=== PATIENT | male | born 1960 | race African-American/Black ===

== ENCOUNTER 2016-05-14 07:35 | Day surgery (SDC) | payer BC ==
[~2016-05-14] VITALS: Ht 185.4 cm; Wt 113.4 kg
[~2016-05-14 07:35] MED LIST: ACET500T33 PO; AMLO5TAB2 PO; ASPI-482 PO; BUPR300T4 PO; CEFAZOLIN 1GM IVPB FOR OMNI 50 ML IV PRN; CLON1TAB PO; FENTANYL PF 100 MCG/2 ML VIAL. IV PRN; GABA-586 PO; GUAI600T38 PO; HYDR12.58 PO; HYDROMORPHONE 2 MG/ML VIAL. IV PRN; INSU100I11 SQ; INSU100I13 SQ; INSU100I17 SQ; IV RINGERS,LACTATED 1000ML 1,000 ML IV SCH; LEVO500T38 PO; LIDOCAINE 1% 1 ML SYRINGE. ID PRN; MORPHINE SULFATE 2 MG/ML DISP.SYRIN. IV PRN; MULT-245 PO; ONDANSETRON PF 4 MG/2 ML VIAL. IV PRN; PRED-220 PO; PROAIR HFA8.5 GM IH; PROCHLORPERAZINE 10 MG/2 ML VIAL. IV PRN; QUET100T4 PO; TRAZ150T55 PO; VALS320T2 PO; ZOLP10TA4 PO
--- NOTE | 2016-05-14 09:05 | DISCH ---
DISCHARGE INSTRUCTIONS Condition on Discharge Condition on Discharge: Stable Activity After Discharge Activity Instructions for Disc: Activity as tolerated Bathing Instructions: Shower-keep dressing dry Weight Bearing Status after Di: As tolerated Diet after Discharge Diet after Discharge: Regular Wound Incision Care Wound/Incision Care: Ice to area for comfort, Keep wound/cast CDI, Change dressing Contacting the DRMorris after DC Call your doctor for: Concerns you may have Follow-Up Follow up with: Melly in 2wks Treatment/Equipment after DC Adaptive Equipment Issued: None APRIL DELACRUZ II, MD May 14, 2016 09:05
--- NOTE | 2016-05-14 09:06 | PDOC ---
BRIEF OPERATIVE NOTE Date: May 14, 2016 Pre-Op Diagnosis L knee meniscus tear Post-Op Diagnosis same Procedure Performed L ILIANA, Surgeon Melly Anesthesiologist Tressa Anesthesia Type: General Blood Loss 5mL Complications none APRIL DELACRUZ II, MD May 14, 2016 09:06
[2016-05-14] MEDS ORDERED: PROPOFOL 20 ML IV ONE (09:28)
[2016-05-14] MEDS ORDERED: ONDANSETRON PF 4 MG/2 ML VIAL. ONE (09:29)
[2016-05-14] MEDS ORDERED: FENTANYL PF 100 MCG/2 ML VIAL. ONE (09:29)
[2016-05-14] MEDS ORDERED: LIDOCAINE 2% 100 MG/5 ML DISP.SYRIN. ONE (09:29)
[2016-05-14] MEDS ORDERED: SUCCINYLCHOLINE 200 MG/10 ML VIAL. ONE (09:29)
[2016-05-14] MEDS ORDERED: DEXAMETHASONE SOD PHOS 20 MG/5 ML VIAL. ONE (09:29)
[2016-05-14] MEDS ORDERED: BUPIVACAINE MPF 0.5% 30 ML VIAL. ONE (09:45)
[2016-05-14] MEDS ORDERED: LIDOCAINE 1% 20 ML VIAL. ONE (09:45)
[2016-05-14] MEDS ORDERED: EPINEPHRINE 30 MG/30 ML VIAL. ONE (09:45)
[2016-05-14] MEDS ORDERED: EPHEDRINE PF IN SALINE 50 MG/5 ML DISP.SYRIN. IV ONE (10:10)
[2016-05-14] MEDS ORDERED: PHENYLEPHRINE in 0.9% NACL PF 1 MG/10 ML DISP.SYRIN. IV ONE (10:19)
[2016-05-14] MEDS ORDERED: SEVOFLURANE 31 TO 60 MINUTES. IH ONE (10:41)
[2016-05-14] MEDS: FENTANYL PF 100 MCG/2 ML VIAL. IV PRN ×2 (11:12→11:33)
[2016-05-14] MEDS ORDERED: HYDROCODONE/APAP 5/325MG TABLET. PO PRN (11:30)
[2016-05-14] MEDS ORDERED: HYDROCODONE/APAP 5/325MG TABLET. ONE (11:35)
[2016-05-14 12:12] VITALS: BP 147/89
--- NOTE | 2016-05-14 20:47 | OP ---
DATE OF SURGERY: 05/14/2016 SURGEON: Wei Delacruz MD CLINICAL NURSE SPECIALIST: None. ANESTHESIA: General. PREOPERATIVE DIAGNOSIS: Left knee lateral meniscus tear. POSTOPERATIVE DIAGNOSIS: Left knee lateral meniscus tear. PROCEDURE PERFORMED: Left knee arthroscopic partial lateral meniscectomy. COMPLICATIONS: None. TOURNIQUET TIME: 22 minutes. ESTIMATED BLOOD LOSS: 10 mL. FINDINGS: 1. The patient had intact cartilage, patellofemoral articulation. 2. No loose bodies present in suprapatellar pouch, medial and lateral gutters. 3. Intact cruciate ligaments without pathology. 4. Intact medial compartment cartilage and medial meniscus. Medial meniscus was stable to probing. 5. The patient had an undersurface radial coursing undersurface oblique tear with a horizontal component at the posterior body of his lateral meniscus. The remainder of the meniscus was stable to probing. He had soft tibial plateau cartilage laterally. No other cartilage pathology at the lateral femoral condyle. REASON FOR PROCEDURE: The patient is a very pleasant 56-year-old who had persistent pain as well as painful catching at his knee that failed conservative therapy such as anti-inflammatories and corticosteroid injections. Because of this, we had a discussion of risks, benefits, alternatives of proceeding with the above surgery with him. He elected to proceed. DESCRIPTION OF PROCEDURE: The patient was greeted in the preoperative area by myself. Correct extremity was marked and verified. He was taken to the operative suite and his antibiotics were started en route. Once in the OR, he was transferred gently supine on the OR table and secured to the bed with all pressure points padded after successful induction of general anesthesia. We then placed a padded bar at the level of the hip after applying a nonsterile tourniquet to his left thigh. This maintained his knee at 90 degrees. We then proceeded to prep and drape left lower extremity in usual sterile fashion and conducted a standard preoperative timeout. After accomplishing this, I palpated and marked surface anatomy. We then exsanguinated the extremity with an Esmarch and insufflated the tourniquet to 300 mmHg. I then incised skin for my standard anterolateral arthroscopic portal and introduced a blunt arthroscopic trocar into the suprapatellar pouch followed by the camera. I then conducted my diagnostic arthroscopy and while at the medial compartment, I used a spinal needle to localize the anteromedial portal and incise skin in accordance with this. I then introduced a probe and continued on with my diagnostic arthroscopy with the above noted findings. I then introduced a shaver and took down a large plica for appropriate visualization with his knee in a [id number] position. After this, I began shaving and biting away the unstable part of his posterior lateral meniscus. The undersurface of the oblique portion was at approximately the mid portion of the meniscus. Using combination of shaver and upbiter I trimmed this back to stable edges as well. I then used a probe to make sure I had removed all of the meniscus tear. The meniscus was still stable. I then took my final pictures and removed all excess arthroscopic fluid with the knee back in extension and the shaver and camera in the suprapatellar pouch. The culinary assistant then vigorously palpated behind the popliteal fossa to ensure I had removed all loose debris. I then removed all excess arthroscopic fluid and the arthroscopic instrumentation. The portals were closed with a simple interrupted 2-0 nylon. Sterile dressing was then applied after I injected approximately 10 mL of a local anesthetic mixture into the periportal subcutaneous tissue. We then placed a sterile dressing, cast padding and Kwesi wrap. The patient was then awakened from anesthesia. He was transferred gently supine to the recovery room cart and taken to PACU in stable and extubated condition. Postop plan is for her to be weightbearing as tolerated. We will see him back in 2 weeks, sooner should a problem arise. WEI DELACRUZ MD DR: MARIANN/glenroy JOB#: [id number] / [id number] YAMILETH
== END 2016-05-14 12:39 | disposition home or self-care (01) ==
LOC: SURG 07:35
PROVIDERS: ATTEND Orthopaedic Surgery Sports Medicine
DX: S83.282A Other tear of lateral meniscus, current injury, left knee, initial encounter (principal); I10 Essential (primary) hypertension; J44.9 Chronic obstructive pulmonary disease, unspecified; E11.9 Type 2 diabetes mellitus without complications; F41.9 Anxiety disorder, unspecified; F32.9 Major depressive disorder, single episode, unspecified; F17.200 Nicotine dependence, unspecified, uncomplicated; D64.9 Anemia, unspecified; X58.XXXA Exposure to other specified factors, initial encounter; Y93.9 Activity, unspecified; Y92.9 Unspecified place or not applicable; Y99.9 Unspecified external cause status
CPT/HCPCS: 29881; 82947; C1782; J0171; J0330; J0690; J1100; J2405; J2704; J3010; J3490; J2370

== ENCOUNTER → 2016-05-26 | Day surgery (SDC) | payer BC ==
[~2016-05-26] MED LIST changes: -CEFAZOLIN 1GM IVPB FOR OMNI 50 ML IV PRN; -FENTANYL PF 100 MCG/2 ML VIAL. IV PRN; -HYDROMORPHONE 2 MG/ML VIAL. IV PRN; +INSU100V SQ; -LIDOCAINE 1% 1 ML SYRINGE. ID PRN; -MORPHINE SULFATE 2 MG/ML DISP.SYRIN. IV PRN; -ONDANSETRON PF 4 MG/2 ML VIAL. IV PRN; -PROCHLORPERAZINE 10 MG/2 ML VIAL. IV PRN; +PROPOFOL 20 ML IV ONE
--- NOTE | 2016-05-26 11:02 | PDOC1 ---
HISTORY & PHYSICAL H&P Karma Mata. [id number] 1960 05/21/2016 02:30 PM 04/06 [facility], [facility] OUR PATIENTS COME FIRST [address] [place] [address] Ph. [phone] Patient: Karma Mata Date of : 1960 Date: 05/21/2016 2:30 PM Visit Type: Consult This 56 year old male presents for Anemia. History of Present Illness: 1. Anemia Type of anemia was acquired for deficiency anemia (macrocytic). Pertinent negatives include abdominal pain, fatigue, jaundice, nausea and weight loss. Additional information: Here due to anemia. Hgb is down to 12 from 15. Has no melena or rectal bleed. MCV normal and B12 abd folate normal. Has normal iron. Had prior EGD and had significant gastritis and duodenitis. Had small colonic polyp before. INTAKE COMMENTS: Intake Comments: Nurse Note: the pt is here today due to Anemia, the past last HgB was 12.4. His last EGD/Colon were in 2011. PROBLEM LIST: Problem Description Onset Date Acute bilateral low back pain without sciatica 06/28/2015 Acute bronchospasm 05/11/2015 Acute bronchospasm due to viral infection 05/11/2015 Acute bronchitis, unspecified organism 05/11/2015 Tremors of nervous system 01/16/2016 Elevated CPK 01/16/2016 Alcoholic hepatitis without ascites 01/16/2016 Acute alcoholism 01/09/2016 Diabetes type 2, uncontrolled 05/04/2015 Benign essential hypertension 06/07/2009 Panic disorder without agoraphobia 06/07/2009 Hypothyroidism 06/07/2009 Anemia 06/07/2009 Chronic renal impairment 06/07/2009 Alcoholic liver damage 06/07/2009 Depressive disorder 06/07/2009 Hyperlipidemia 06/07/2009 Benign prostatic hyperplasia 06/07/2009 Diabetes mellitus without complication 06/07/2009 PAST MEDICAL/SURGICAL HISTORY (Detailed) Disease/disorder Onset Date Management Date Comments EGD with biopsy 04/22/2012 Alcoholism Anemia Arthritis Benign prostatic hyperplasia Bursitis CKD Colonic polyps-hyperplastic polyp 04/22/2012 colonoscopy with biopsy 04/22/2012 Depression Diabetes GERD Gout Headaches Hyperlipidemia Hypertension Hypothyroidism Meniscal knee tear knee surgery 05/2016 Panic disorder without agoraphobia Tremors DIAGNOSTICS HISTORY: Test Ordered Interpretation Result completed Scan MRI/Lt knee 12/21/2008 see report 12/21/2008 EGD 11/03/2008 duodenitis 11/03/2008 Abd x-ray 11/01/2008 see report 11/01/2008 chest x-ray 10/30/2008 see report 10/30/2008 Echocardiogram 01/22/2007 EF 55-60% 01/22/2007 EKG 06/08/2006 Normal 06/08/2006 EGD 04/08/2012 abnormal Imp; Gastritis(bx), duodenitis BX: Reactive gastropathy 04/22/2012 Colonoscopy 04/08/2012 abnormal Imp: polyp in the sigmoid colon(bx), BX: hyperplastic polyp 04/22/2012 Test Ordered Ordering Comments Modifier Scan MRI/Lt knee 12/21/2008 Diagnostic Images EGD 11/03/2008 Gastroenterology Abd x-ray 11/01/2008 Diagnostic Images chest x-ray 10/30/2008 Diagnostic Images Echocardiogram 01/22/2007 Cardiac Studies EKG 06/08/2006 Cardiac Studies EGD 04/08/2012 Colonoscopy 04/08/2012 Medications (Active): Started Medication Directions Instruction Stopped 01/24/2016 AMLODIPINE BESYLATE TABS 5MG TAKE 1 TABLET DAILY 01/11/2009 BD Insulin Pen Needle UF Short 31 X 5/16" 1 BOX 02/21/2016 bupropion HCl XL 300 mg 24 hr tablet, extended release TAKE 1 TABLET BY ORAL ROUTE EVERY DAY clonazepam 1 mg tablet take 1 Tablet by Oral route 3 times every day gabapentin 300 mg capsule take 1 capsule by oral route 2 times every day 05/04/2015 Humalog KwikPen 100 unit/mL subcutaneous insulin injection tid ac per ssi DX: 250.02 SSI <100=2unit, 101-150=2unit 151-200=4unit 201-250=6units 251-300=8 units 301-350=10 units 351-400=12 units Please send all refills ESCRIPT!!! 04/01/2016 hydrochlorothiazide 12.5 mg tablet take 1 tablet by oral route every day 04/09/2016 hydrocodone 7.5 mg-acetaminophen 325 mg tablet take 1 tablet by oral route every 6 hours as needed for pain 04/24/2016 LANTUS SOLOSTAR PEN 100U/ML INJECT 60 UNITS UNDER THE SKIN ONCE DAILY FOR DIABETES 01/23/2016 magnesium oxide 400 mg tablet take 1 tablet by oral route 3 times every day 11/11/2011 Pen Needle 31 X 1/4" USE ONCE PER INJECTION-THREE TIMES DAILY 03/27/2009 Precision Xtra Test Strips check FSBS daily 04/09/2016 prednisone 10 mg tablet take 1 tablet by oral route every day 01/09/2016 ProAir HFA 90 mcg/actuation aerosol inhaler INHALE 2 PUFF BY INHALATION ROUTE EVERY 6 HOURS NEEDED Seroquel 100 mg tablet take 1 tablet by oral route 2 times every day 04/09/2016 trazodone 150 mg tablet take 1 tablet by oral route every day after meals 04/01/2016 VALSARTAN TABS 320MG TAKE 1 TABLET DAILY FOR BLOOD PRESSURE 10/20/2014 Zyrtec 10 mg tablet take 1 tablet (10MG) by ORAL route every day at bedtime as needed Allergies: Ingredient Reaction Medication Name Comment LISINOPRIL REVIEW OF SYSTEMS System Neg/Pos Details Constitutional Negative Chills, fatigue, fever, malaise and weight loss. ENMT Negative Sore throat. Eyes Negative Double vision. Respiratory Negative Dyspnea and wheezing. Cardio Negative Chest pain and irregular heartbeat/palpitations. GI Positive See HPI. GI Negative Abdominal pain, jaundice, nausea and see HPI. Negative Dysuria and hematuria. Endocrine Negative Cold intolerance and heat intolerance. Psych Negative Anxiety. Integumentary Negative Hives and rash. MS Negative Joint pain. Bishop/Lymph Negative Easy bleeding and easy bruising. Allergic/Immuno Negative Food allergies. VITAL SIGNS Time BP mm/Hg Pulse /min Resp /min Temp F Ht ft Ht in Ht cm Wt lb Wt kg BMI kg/ m2 BSA m2 O2 Sat% 2:43 PM 112/78 105 98.1 6.0 2.00 187.96 268.20 121.653 34.43 98 Time Measured by 2:43 PM [facility] PHYSICAL EXAM: Exam Findings Details Constitutional Normal Well developed. Eyes Normal Conjunctiva - Right: Normal, Left: Normal. Sclera - Right: Normal, Left: Normal. Nasopharynx Normal Lips/teeth/gums - Normal. Neck Exam Normal Inspection - Normal. Thyroid gland - Normal. Respiratory Normal Inspection - Normal. Auscultation - Normal. Cardiovascular Normal Regular rate and rhythm. No murmurs, gallops, or rubs. Vascular Normal Pulses - Carotids: Normal, Femoral: Normal, Dorsalis pedis: Normal. Abdomen Normal Inspection - Normal. Anterior palpation - No guarding. No abdominal tenderness. No hepatic enlargement. No splenic enlargement. No hernia. No ascites. Skin Normal Inspection - Normal. Extremity Normal No edema. Psychiatric * Oriented to time, place, person and situation. Psychiatric Normal Appropriate mood and effect. The patient was checked out at 2:43 PM by Sola Eddy. Assessment/Plan # Detail Type Description 1. Assessment Iron deficiency anemia, unspecified iron deficiency anemia type ( D50.9). Patient Plan Schedule EGD at [facility]. Stool occult blood x3. Provider Plan If EGD is negative and stool occult is positive then to consider colonoscopy and/or Capsule endoscopy. Plan Orders Further diagnostic evaluations ordered today include(s) EGD to be performed today. He is to schedule a follow-up visit with Tommy Bryant MD upon completion of work-up Electronically signed by: Tommy Bryant MD 05/21/2016 02:57 PM Document generated by: Tommy Bryant 05/21/2016 02:57 PM Haylie Anaya MD, Family Practice; Sukh Castellon MD Internal Medicine; Maria Del Carmen Briones MD, Internal Medicine; Francisco Bryant MD Internal Medicine; Tommy Bryant MD, Gastroenterology; Bimal Bullock MD, Rheumatology, S. Jay Goss, Physical Medicine/Rehab Chavez Hummel APRN ------ 05/26/16 Patient seen and examined. No change in H&P TOMMY BRYANT MD May 26, 2016 11:02
[2016-05-26 11:42] VITALS: BP 132/74
== END | disposition home or self-care (01) ==
LOC: ENDOS 10:13
PROVIDERS: ATTEND Internal Medicine Gastroenterology
DX: K29.70 Gastritis, unspecified, without bleeding (principal); K29.80 Duodenitis without bleeding; D50.0 Iron deficiency anemia secondary to blood loss (chronic); I10 Essential (primary) hypertension; J44.9 Chronic obstructive pulmonary disease, unspecified; E11.9 Type 2 diabetes mellitus without complications; F41.9 Anxiety disorder, unspecified; F32.9 Major depressive disorder, single episode, unspecified; Z87.39 Personal history of other diseases of the musculoskeletal system and connective tissue
CPT/HCPCS: 43235; J2704

== ENCOUNTER → 2016-05-29 | Outpatient (CLI) | payer BC ==
[2016-05-26 11:42] VITALS: BP 132/74
[~2016-05-29] MED LIST changes: -IV RINGERS,LACTATED 1000ML 1,000 ML IV SCH; -PROPOFOL 20 ML IV ONE
--- NOTE | 2016-05-29 16:37 | RAD ---
Left lower extremity venous ultrasound, 05/29/2016 : History: Left leg swelling Duplex evaluation including grayscale, color flow and spectral Doppler analysis was performed. The femoral and popliteal veins show no filling defects to suggest DVT. The visualized calf veins are unremarkable. IMPRESSION: There is no sonographic evidence of deep vein thrombosis in the left lower extremity
== END | disposition home or self-care (01) ==
LOC: US 15:56
PROVIDERS: ATTEND Orthopaedic Surgery Sports Medicine
DX: M79.89 Other specified soft tissue disorders (principal)
CPT/HCPCS: 93971

== ENCOUNTER → 2016-06-09 | Day surgery (SDC) | payer BC ==
[~2016-06-09] MED LIST changes: +IV RINGERS,LACTATED 1000ML 1,000 ML IV SCH; +LIDOCAINE 2% PF Vial for OR 5 ML VIAL. ONE; +PROPOFOL 20 ML IV ONE; +PROPOFOL 40 ML IV ONE
--- NOTE | 2016-06-09 10:15 | PDOC1 ---
HISTORY & PHYSICAL H&P Kamra Mata. [id number] 1960 05/21/2016 02:30 PM 04/06 [facility], [facility] OUR PATIENTS COME FIRST [address] [place] [address] Ph. [phone] Patient: Karma Mata Date of : 1960 Date: 05/21/2016 2:30 PM Visit Type: Consult This 56 year old male presents for Anemia. History of Present Illness: 1. Anemia Type of anemia was acquired for deficiency anemia (macrocytic). Pertinent negatives include abdominal pain, fatigue, jaundice, nausea and weight loss. Additional information: Here due to anemia. Hgb is down to 12 from 15. Has no melena or rectal bleed. MCV normal and B12 abd folate normal. Has normal iron. Had prior EGD and had significant gastritis and duodenitis. Had small colonic polyp before. INTAKE COMMENTS: Intake Comments: Nurse Note: the pt is here today due to Anemia, the past last HgB was 12.4. His last EGD/Colon were in 2011. PROBLEM LIST: Problem Description Onset Date Acute bilateral low back pain without sciatica 06/28/2015 Acute bronchospasm 05/11/2015 Acute bronchospasm due to viral infection 05/11/2015 Acute bronchitis, unspecified organism 05/11/2015 Tremors of nervous system 01/16/2016 Elevated CPK 01/16/2016 Alcoholic hepatitis without ascites 01/16/2016 Acute alcoholism 01/09/2016 Diabetes type 2, uncontrolled 05/04/2015 Benign essential hypertension 06/07/2009 Panic disorder without agoraphobia 06/07/2009 Hypothyroidism 06/07/2009 Anemia 06/07/2009 Chronic renal impairment 06/07/2009 Alcoholic liver damage 06/07/2009 Depressive disorder 06/07/2009 Hyperlipidemia 06/07/2009 Benign prostatic hyperplasia 06/07/2009 Diabetes mellitus without complication 06/07/2009 PAST MEDICAL/SURGICAL HISTORY (Detailed) Disease/disorder Onset Date Management Date Comments EGD with biopsy 04/22/2012 Alcoholism Anemia Arthritis Benign prostatic hyperplasia Bursitis CKD Colonic polyps-hyperplastic polyp 04/22/2012 colonoscopy with biopsy 04/22/2012 Depression Diabetes GERD Gout Headaches Hyperlipidemia Hypertension Hypothyroidism Meniscal knee tear knee surgery 05/2016 Panic disorder without agoraphobia Tremors DIAGNOSTICS HISTORY: Test Ordered Interpretation Result completed Scan MRI/Lt knee 12/21/2008 see report 12/21/2008 EGD 11/03/2008 duodenitis 11/03/2008 Abd x-ray 11/01/2008 see report 11/01/2008 chest x-ray 10/30/2008 see report 10/30/2008 Echocardiogram 01/22/2007 EF 55-60% 01/22/2007 EKG 06/08/2006 Normal 06/08/2006 EGD 04/08/2012 abnormal Imp; Gastritis(bx), duodenitis BX: Reactive gastropathy 04/22/2012 Colonoscopy 04/08/2012 abnormal Imp: polyp in the sigmoid colon(bx), BX: hyperplastic polyp 04/22/2012 Test Ordered Ordering Comments Modifier Scan MRI/Lt knee 12/21/2008 Diagnostic Images EGD 11/03/2008 Gastroenterology Abd x-ray 11/01/2008 Diagnostic Images chest x-ray 10/30/2008 Diagnostic Images Echocardiogram 01/22/2007 Cardiac Studies EKG 06/08/2006 Cardiac Studies EGD 04/08/2012 Colonoscopy 04/08/2012 Medications (Active): Started Medication Directions Instruction Stopped 01/24/2016 AMLODIPINE BESYLATE TABS 5MG TAKE 1 TABLET DAILY 01/11/2009 BD Insulin Pen Needle UF Short 31 X 5/16" 1 BOX 02/21/2016 bupropion HCl XL 300 mg 24 hr tablet, extended release TAKE 1 TABLET BY ORAL ROUTE EVERY DAY clonazepam 1 mg tablet take 1 Tablet by Oral route 3 times every day gabapentin 300 mg capsule take 1 capsule by oral route 2 times every day 05/04/2015 Humalog KwikPen 100 unit/mL subcutaneous insulin injection tid ac per ssi DX: 250.02 SSI <100=2unit, 101-150=2unit 151-200=4unit 201-250=6units 251-300=8 units 301-350=10 units 351-400=12 units Please send all refills ESCRIPT!!! 04/01/2016 hydrochlorothiazide 12.5 mg tablet take 1 tablet by oral route every day 04/09/2016 hydrocodone 7.5 mg-acetaminophen 325 mg tablet take 1 tablet by oral route every 6 hours as needed for pain 04/24/2016 LANTUS SOLOSTAR PEN 100U/ML INJECT 60 UNITS UNDER THE SKIN ONCE DAILY FOR DIABETES 01/23/2016 magnesium oxide 400 mg tablet take 1 tablet by oral route 3 times every day 11/11/2011 Pen Needle 31 X 1/4" USE ONCE PER INJECTION-THREE TIMES DAILY 03/27/2009 Precision Xtra Test Strips check FSBS daily 04/09/2016 prednisone 10 mg tablet take 1 tablet by oral route every day 01/09/2016 ProAir HFA 90 mcg/actuation aerosol inhaler INHALE 2 PUFF BY INHALATION ROUTE EVERY 6 HOURS NEEDED Seroquel 100 mg tablet take 1 tablet by oral route 2 times every day 04/09/2016 trazodone 150 mg tablet take 1 tablet by oral route every day after meals 04/01/2016 VALSARTAN TABS 320MG TAKE 1 TABLET DAILY FOR BLOOD PRESSURE 10/20/2014 Zyrtec 10 mg tablet take 1 tablet (10MG) by ORAL route every day at bedtime as needed Allergies: Ingredient Reaction Medication Name Comment LISINOPRIL REVIEW OF SYSTEMS System Neg/Pos Details Constitutional Negative Chills, fatigue, fever, malaise and weight loss. ENMT Negative Sore throat. Eyes Negative Double vision. Respiratory Negative Dyspnea and wheezing. Cardio Negative Chest pain and irregular heartbeat/palpitations. GI Positive See HPI. GI Negative Abdominal pain, jaundice, nausea and see HPI. Negative Dysuria and hematuria. Endocrine Negative Cold intolerance and heat intolerance. Psych Negative Anxiety. Integumentary Negative Hives and rash. MS Negative Joint pain. Bishop/Lymph Negative Easy bleeding and easy bruising. Allergic/Immuno Negative Food allergies. VITAL SIGNS Time BP mm/Hg Pulse /min Resp /min Temp F Ht ft Ht in Ht cm Wt lb Wt kg BMI kg/ m2 BSA m2 O2 Sat% 2:43 PM 112/78 105 98.1 6.0 2.00 187.96 268.20 121.653 34.43 98 Time Measured by 2:43 PM [facility] PHYSICAL EXAM: Exam Findings Details Constitutional Normal Well developed. Eyes Normal Conjunctiva - Right: Normal, Left: Normal. Sclera - Right: Normal, Left: Normal. Nasopharynx Normal Lips/teeth/gums - Normal. Neck Exam Normal Inspection - Normal. Thyroid gland - Normal. Respiratory Normal Inspection - Normal. Auscultation - Normal. Cardiovascular Normal Regular rate and rhythm. No murmurs, gallops, or rubs. Vascular Normal Pulses - Carotids: Normal, Femoral: Normal, Dorsalis pedis: Normal. Abdomen Normal Inspection - Normal. Anterior palpation - No guarding. No abdominal tenderness. No hepatic enlargement. No splenic enlargement. No hernia. No ascites. Skin Normal Inspection - Normal. Extremity Normal No edema. Psychiatric * Oriented to time, place, person and situation. Psychiatric Normal Appropriate mood and effect. The patient was checked out at 2:43 PM by Sola Eddy. Assessment/Plan # Detail Type Description 1. Assessment Iron deficiency anemia, unspecified iron deficiency anemia type ( D50.9). Patient Plan Schedule EGD at [facility]. Stool occult blood x3. Provider Plan If EGD is negative and stool occult is positive then to consider colonoscopy and/or Capsule endoscopy. Plan Orders Further diagnostic evaluations ordered today include(s) EGD to be performed today. He is to schedule a follow-up visit with Tommy Bryant MD upon completion of work-up Electronically signed by: Tommy Bryant MD 05/21/2016 02:57 PM Document generated by: Tommy Bryant 05/21/2016 02:57 PM Haylie Anaya MD, Family Practice; Sukh Castellon MD Internal Medicine; Maria Del Carmen Briones MD, Internal Medicine; Francisco Bryant MD Internal Medicine; Tommy Bryant MD, Gastroenterology; Bimal Bullock MD, Rheumatology, S. Jay Goss, Physical Medicine/Rehab JMorris Hummel APRN ------ 06/09/16 Patient seen and examined. Patient has been scheduled for colonoscopy due to anemia and negative EGD. Insurance company needed this before approving for capsule endoscopy. No other change in H&P otherwise. TOMMY BRYANT MD 6, 2017 10:15
--- NOTE | 2016-06-09 11:33 | PDOC4 ---
GI OP Report - Dr. Roger Date/Time DATE: 06/09/16 TIME: 11:30 Attending Physician Howard Roger MD Referring Physician Indications Iron deficiency anemia secondary to chronic blood loss Pre-Op See the Anesthesia note for documentation of the administered medications Procedures Colonoscopy and polypectomy Findings - Three 4 to 10 mm, non-bleeding polyps in the proximal ascending colon. Resected and retrieved. Biopsied. Clips were placed. - One 8 mm polyp in the transverse colon. Resected and retrieved. - One 5 mm polyp in the rectum. Resected and retrieved. Plan - Discharge patient to home. - Patient has a contact number available for emergencies. The signs and symptoms of potential delayed complications were discussed with the patient. Return to normal activities tomorrow. Written discharge instructions were provided to the patient. - Resume regular diet. - Continue present medications. - Await pathology results. - Repeat colonoscopy in 3 - 5 years for surveillance based on pathology results. - Return to my office in 2 weeks. HOWARD ROGER MD Jun 09, 2016 11:33
[2016-06-09 11:37] VITALS: BP 126/82
--- NOTE | 2016-06-10 14:26 | PATHOLOGY ---
PATHOLOGY REPORT * * * * * * * * FINAL DIAGNOSIS: A. Colon biopsy, ascending colon polyp: - Tubular adenoma. B. Colon biopsy, transverse colon polyp: - Tubular adenoma. C. Colorectal biopsy, rectal polyp: - Tubular adenoma. COMMENT: There is no high-grade dysplasia or evidence of malignancy. (JPM:; d/t: 06/10/16) REPORT ELECTRONICALLY SIGNED BY: Jorge Luis Michaels M.D. DATE/TIME: 06/10/2016 14:25 * * * * * * * * GROSS PATHOLOGY: A. Received in formalin labeled "Karma Jordan, ascending colon polyp biopsy near ileocecal valve," are four segments of montero soft tissue measuring 0.8 x 0.8 x 0.1 cm in aggregate dimensions and ranging from 0.2 to 0.8 cm in maximum dimension. The specimen is submitted entirely in cassette A1. B. Received in formalin labeled "Karma Jordan, transverse colon polyp," are two segments of montero soft tissue measuring 0.8 x 0.7 x 0.2 cm in aggregate dimensions and ranging from 0.3 to 0.6 cm in maximum dimension. The specimen is submitted entirely in cassette B1. C. Received in formalin labeled "Karma Jordan, rectal polyp," are three segments of montero soft tissue measuring 0.5 x 0.3 x 0.1 cm in aggregate dimensions and ranging from 0.1 to 0.3 cm in maximum dimension. The specimen is submitted entirely in cassette C1. (CAA; 06/09/2016) INITIAL CPT CODE(S): A; 47852 B; 82839 C; 12986 Professional services performed by [facility] at [address] [address] Technical services performed by [facility] at [address] [place] [address] [address] [id number]. SPECIMEN(S) RECEIVED: A.Ascending colon polyp biopsy (near ileocecal valve) B.Transverse colon polyp C.Rectal polyp CLINICAL HISTORY: Anemia, history of polyps PATIENT: KARMA JORDAN /AGE: 10 1960 (Age: 56) PATIENT #: [id number] ALT CASE #: SPECIMEN COLLECTION DATE: 06/09/2016 SPECIMEN RECEIVED DATE: 06/09/2016 [facility] - [id number] [id number] - PHONE: [phone] * * * END OF REPORT * * *
== END | disposition home or self-care (01) ==
LOC: ENDOS 09:31
PROVIDERS: ATTEND Internal Medicine Gastroenterology
DX: K62.1 Rectal polyp (principal); D50.0 Iron deficiency anemia secondary to blood loss (chronic); D12.3 Benign neoplasm of transverse colon; D12.2 Benign neoplasm of ascending colon; J44.9 Chronic obstructive pulmonary disease, unspecified; I10 Essential (primary) hypertension; E11.9 Type 2 diabetes mellitus without complications; F41.9 Anxiety disorder, unspecified; F32.9 Major depressive disorder, single episode, unspecified; Z87.39 Personal history of other diseases of the musculoskeletal system and connective tissue
CPT/HCPCS: 45385; 88305; J2704

== ENCOUNTER 2016-10-07 14:21 | Emergency (ER) | payer BC ==
[~2016-10-07] VITALS: Ht 185.4 cm; Wt 113.4 kg
[~2016-10-07 14:21] MED LIST changes: -GUAI600T38 PO; +GUAI600T47 PO; -IV RINGERS,LACTATED 1000ML 1,000 ML IV SCH; -LEVO500T38 PO; +LEVO500T59 PO; -LIDOCAINE 2% PF Vial for OR 5 ML VIAL. ONE; -PROPOFOL 20 ML IV ONE; -PROPOFOL 40 ML IV ONE; +TRAZ150T49 PO; -TRAZ150T55 PO
--- NOTE | 2016-10-07 15:02 | RAD ---
Indication old injury, chronic pain. AP oblique and lateral views of the left knee were obtained. A sunrise view was also obtained. Bony mineralization appears normal. Acute bony finding is not seen. There are chondroid lesions involving the distal visualized femoral diaphysis and perhaps in the more proximal tibial diaphysis. The etiology is unclear. Bone infarcts could give this appearance. If additional imaging evaluation is warranted an MRI examination could be obtained. IMPRESSION: No acute finding. See above discussion.
[2016-10-07] MEDS ORDERED: IV NORMAL SALINE 1000ML BAG 1,000 ML IV SCH (15:04)
[2016-10-07 15:22] LABS: BASO # 0.1 x10^3/uL (0.0-0.2); BASO % 1 % (0-3); EOS % 1 % (0-3); HEMATOCRIT 45.4 % (39.0-53.0); HEMOGLOBIN 15.9 g/dL (13.0-17.5); LYMPH # 3.7 x10^3/uL (1.0-4.8); LYMPH % 45 % (24-48); MEAN CORPUSCULAR HEMOGLOBIN 31 pg (25-35); MEAN CORPUSCULAR HGB CONC 35 g/dL (31-37); MEAN CORPUSCULAR VOLUME 90 fL (79-100); MONO % 3 % (0-9); NEUT % 51 % (31-73); PLATELET COUNT 192 x10^3/uL (140-400); RED BLOOD COUNT 5.04 x10^6/uL (4.30-5.70); RED CELL DISTRIBUTION WIDTH 14.4 % (11.5-14.5); WHITE BLOOD COUNT 8.2 x10^3/uL (4.0-11.0)
--- NOTE | 2016-10-07 15:23 | ED.ADGEN ---
Past Medical History Past Medical History: Anxiety, Bronchitis, Diabetes-Type II, Hypertension Past Surgical History: Other Additional Past Surgical Histo: L KNEE Alcohol Use: Occasionally Drug Use: None Adult General Chief Complaint Chief Complaint: LOWER EXT PAIN HPI HPI Patient is a 56 year old, history of type 2 diabetes mellitus, hypertension, COPD, tobacco abuse, status post arthroscopy for a torn meniscus on the left knee in July 2016, who presents to the emergency department with complaint of left knee pain. Patient states that the pain began on Thursday. He states is located in the lateral aspect of his left knee, he states it is worse with flexion and weightbearing. He denies any injuries, stating he first noted the pain when he woke up in the morning. He took a 500 mg Tylenol this morning, then taken any other medications for the pain. Patient noted be 70 diaphoretic, states has been outside today, he has been drinking beer and soda throughout the day, as is the holiday. He states his sugars have been "good", but he's been taking medications as directed by his primary care provider. He denies any chest pain, any shortness breath, states he has been experiencing a "nasty cough ", for some time, it is primarily nonproductive. States that he has felt "hot" today, noted to have a temperature of 100.0 by mouth upon arrival to the ED, but denies any distinct fevers or chills. No nausea or vomiting, diarrhea, no swelling extremities, no rashes, no recent travel or surgery, no history of DVT or PE. Noted a mildly tachycardic, heart rate 106 at rest, 119 upon arrival to the emergency department. Review of Systems Review of Systems Constitutional: Denies fever or chills. [] Eyes: Denies change in visual acuity. [] HENT: Denies nasal congestion or sore throat. [] Respiratory: Cough, no shortness of breath. Cardiovascular: Denies chest pain or edema. [] GI: Denies abdominal pain, nausea, vomiting, bloody stools or diarrhea. [] : Denies dysuria. [] Musculoskeletal: Denies back pain, pain in the left knee, lateral aspect. Integument: Denies rash. [] Neurologic: Denies headache, focal weakness or sensory changes. [] Endocrine: Denies polyuria or polydipsia. [] Lymphatic: Denies swollen glands. [] Psychiatric: Denies depression or anxiety. [] Current Medications Current Medications Current Medications Medications (Trade) Dose Ordered Sig/Tatum Start Time Stop Time Status Last Admin Dose Admin Acetaminophen (Tylenol) 1,000 mg 1X ONCE 10/07/16 15:45 10/07/16 15:46 DC 10/07/16 15:57 1,000 MG Sodium Chloride 1,000 ml @ 1,000 mls/hr Q1H 10/07/16 15:04 10/07/16 16:03 DC 10/07/16 15:34 1,000 MLS/HR Allergies Allergies Allergies Coded Allergies Type Severity Reaction Last Updated Verified lisinopril Allergy Severe ANGIOEDEMA 06/09/16 Yes Physical Exam Physical Exam Constitutional: Well developed, well nourished, no acute distress, patient slightly diaphoretic. [] HENT: Normocephalic, atraumatic, bilateral external ears normal, oropharynx moist, no oral exudates, nose normal. [] Eyes: PERRLA, EOMI, conjunctiva normal, no discharge. [] Neck: Normal range of motion, no tenderness, supple, no stridor. [] Cardiovascular:Heart rate regular rhythm, no murmur, S1, S2, mild tachycardic. No rubs or gallops. [] Lungs & Thorax: Diminished breath sounds at bases bilaterally, no wheezing, rhonchi or rales. No chest or crepitus or tenderness. [] Abdomen: Bowel sounds normal, soft, no rebound, rigidity, no guarding, no tenderness, no masses, no pulsatile masses. [] Skin: Warm, dry, no erythema, no rash. [] Back: No tenderness, no CVA tenderness. [] Extremities: Patient with full range of motion, active and passive the knee, complains of pain on the lateral laxity to the knee, no patellar fossa tenderness, no evidence of injury, of large effusion, lesions or other concerning findings, joint is not septic in appearance, and in mobility, no cyanosis, no clubbing, ROM intact, no edema. No other areas of discomfort identified, no bony point tenderness or crepitus. [] Neurologic: Alert and oriented X 3, normal motor function, normal sensory function, no focal deficits noted. [] Psychologic: Affect normal, judgement normal, mood normal. [] Current Patient Data Vital Signs Vital Signs Date Time Temp Pulse Resp B/P (MAP) Pulse Ox O2 Delivery O2 Flow Rate FiO2 10/07/16 14:40 100.0 119 20 150/86 (107) 91 Room Air 100.0 Lab Values Laboratory Tests Test 10/07/16 15:00 10/07/16 15:35 White Blood Count 8.2 x10^3/uL (4.0-11.0) Red Blood Count 5.04 x10^6/uL (4.30-5.70) Hemoglobin 15.9 g/dL (13.0-17.5) Hematocrit 45.4 % (39.0-53.0) Mean Corpuscular Volume 90 fL (79-100) Mean Corpuscular Hemoglobin 31 pg (25-35) Mean Corpuscular Hemoglobin Concent 35 g/dL (31-37) Red Cell Distribution Width 14.4 % (11.5-14.5) Platelet Count 192 x10^3/uL (140-400) Neutrophils (%) (Auto) 51 % (31-73) Lymphocytes (%) (Auto) 45 % (24-48) Monocytes (%) (Auto) 3 % (0-9) Eosinophils (%) (Auto) 1 % (0-3) Basophils (%) (Auto) 1 % (0-3) Neutrophils # (Auto) 4.1 x10^3uL (1.8-7.7) Lymphocytes # (Auto) 3.7 x10^3/uL (1.0-4.8) Monocytes # (Auto) 0.3 x10^3/uL (0.0-1.1) Eosinophils # (Auto) 0.0 x10^3/uL (0.0-0.7) Basophils # (Auto) 0.1 x10^3/uL (0.0-0.2) Sodium Level 144 mmol/L (136-145) Potassium Level 3.9 mmol/L (3.5-5.1) Chloride Level 101 mmol/L (98-107) Carbon Dioxide Level 22 mmol/L (21-32) Anion Gap 21 (6-14) H Blood Urea Nitrogen 15 mg/dL (8-26) Creatinine 1.4 mg/dL (0.7-1.3) H Estimated GFR (Cockcroft-Gault) 63.7 Glucose Level 120 mg/dL (70-99) H Calcium Level 8.4 mg/dL (8.5-10.1) L Ethyl Alcohol Level 276 mg/dL (0-10) H Urine Collection Type Unknown Urine Color Yellow Urine Clarity Clear Urine pH 5.5 Urine Specific [place] 1.010 Urine Protein 30 mg/dL (NEG-TRACE) Urine Glucose (UA) Negative mg/dL (NEG) Urine Ketones (Stick) Negative mg/dL (NEG) Urine Blood Moderate (NEG) Urine Nitrite Negative (NEG) Urine Bilirubin Negative (NEG) Urine Urobilinogen Dipstick 0.2 mg/dL (0.2 mg/dL) Urine Leukocyte Esterase Negative (NEG) Urine RBC 0 /HPF (0-2) Urine WBC 0 /HPF (0-4) Urine Bacteria 0 /HPF (0-FEW) Urine Hyaline Casts Few /HPF Urine Mucus Mod /LPF Urine Opiates Screen Neg (NEG) Urine Methadone Screen Neg (NEG) Urine Barbiturates Neg (NEG) Urine Phencyclidine Screen Neg (NEG) Urine Amphetamine/Methamphetamine Neg (NEG) Urine Benzodiazepines Screen Neg (NEG) Urine Cocaine Screen Neg (NEG) Urine Cannabinoids Screen Neg (NEG) Urine Ethyl Alcohol Pos (NEG) Laboratory Tests 10/07/16 15:00 Laboratory Tests 10/07/16 15:00 EKG EKG EC: Sinus rhythm, heart rate 97 bpm, rates appear axis deviation, with left anterior fascicular block, QTC of 456, DC 158, QRS of 86, contour normality is in the anteroseptal leads, abnormal ECG, does not meet STEMI criteria. As interpreted by me. [] Radiology/Procedures Radiology/Procedures Chest x-ray: PA and lateral: Normal cardiopulmonary silhouette, no infiltrates, no pneumothorax, no effusions, no soft tissue or bony abnormalities identified. As interpreted by me. Course & Med Decision Making Course & Med Decision Making Pertinent Labs and Imaging studies reviewed. (See chart for details) Patient states that the knee pain is experiencing is consistent with a knee pain that he felt before his arthroscopically was performed. No evidence of septic joint on examination. Patient does not have hardware in the leg. However with patient's oxygen saturation at 91%, with temperature of 100, and heart rate in the 100s, discussed the patient could possibly be dehydrated, as he has been out in the heat and drinking alcohol and soda, will proceed with IV fluids , laboratory studies, x-ray of the chest and knee. X-ray of the chest unremarkable, oxygen saturation is 94-95% at rest, respiratory rate is unlabored ROM a heart rate is now 80s to 90s at rest, blood pressure remains 150s over 80s, patient received acetaminophen in the ED. He states he is still experiencing pain in the left knee, discussed x-ray findings with patient, noted to have chondral lesions, no evidence of acute fracture or other abnormality, discussed with patient that he should follow-up with Dr. Pickard or additional evaluation, including possible MRI. Patient voices understanding. Laboratory studies reveal a creatinine of 1.4, patient in case this is about his baseline as far as he is aware, as an alcohol level of 276, patient states that he has been "sipping" on liquor during the day, not indicated exact amounts or types of alcohol, as it is a holiday, but does not drink daily. He is alert, oriented, cooperative and appropriate in the emergency department, with at bedside. I discussed with the patient that due to his creatinine anti-inflammatories would be avoided, and that I cannot give him any stronger medications than acetaminophen as his alcohol level is prohibited. Discussed use of muscle relaxers to be used at home as needed, starting tomorrow once his alcohol level is lower. I did discuss this at length with patient and at bedside, they voiced understanding and agreement with this plan. Patient had a laboratory trial in the emergency department, heart rate arrest was in the 80s, did increase to low 100s with ambulation, oxygen saturation remained in the 93- 95% range, patient evidence orthostasis, or any concerns during his ambulation. He states that he is ready to leave the ED at this time. He states he will follow up with his primary care provider and orthopedist as discussed. Also understands concerning symptoms that prompt return. Patient discharged home in stable condition with his with plan to follow-up as stated, with prescription and precautions as discussed. Dragon Disclaimer Dragon Disclaimer This electronic medical record was generated, in whole or in part, using a voice recognition dictation system. Departure Impression: Primary Impression: Knee pain, left Additional Impression: Alcohol use Disposition: HOME, SELF-CARE Condition: IMPROVED Scripts Cyclobenzaprine Hcl (CYCLOBENZAPRINE HCL) 10 Mg Tablet 10 MG PO TID Y for PAIN, #10 TAB Prov: SONIA OSORIO DO 10/07/16 Problem Qualifiers SONIA OSORIO DO Oct 07, 2016 15:23
[2016-10-07 15:32] LABS: CALCIUM 8.4 mg/dL (8.5-10.1); CREATININE 1.4 mg/dL (0.7-1.3); GFR 63.7; POTASSIUM 3.9 mmol/L (3.5-5.1)
[2016-10-07 15:44] LABS: BILIRUBIN,URINE NEGATIVE (NEG); GLUCOSE,URINE NEGATIVE (NEG); NITRITE,URINE NEGATIVE (NEG); PH,URINE 5.5; PROTEIN,URINE 30 mg/dL (NEG-TRACE); UROBILINOGEN,URINE 0.2 mg/dL (0.2 mg/dL)
[2016-10-07] MEDS ORDERED: ACETAMINOPHEN 500 MG TABLET PO ONE (15:45)
[2016-10-07 15:49] LABS: BARBITURATES NEG (NEG); BENZODIAZEPINES NEG (NEG); CANNABINOIDS NEG (NEG); COCAINE NEG (NEG); METHADONE NEG (NEG); OPIATES NEG (NEG); PHENCYCLIDINE NEG (NEG)
[2016-10-07 15:51] LABS: BACTERIA,URINE 0 /HPF (0-FEW); RBC,URINE 0 /HPF (0-2); WBC,URINE 0 /HPF (0-4)
[2016-10-07 16:21] VITALS: BP 165/95
[2016-10-07] MEDS ORDERED: CYCL10TA2 PO (16:34)
--- NOTE | 2016-10-08 06:13 | EKG ---
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
--- NOTE | 2016-10-08 08:06 | RAD ---
Chest, 2 views, 10/07/2016: History: Cough, fever The heart size and pulmonary vascularity are normal. No pulmonary infiltrates are seen. There is no evidence of pleural fluid. IMPRESSION: No acute cardiopulmonary abnormality is detected.
== END 2016-10-07 16:34 | disposition home or self-care (01) ==
LOC: ER 14:21
DX: M25.562 Pain in left knee (principal); R61 Generalized hyperhidrosis; E11.9 Type 2 diabetes mellitus without complications; F41.9 Anxiety disorder, unspecified; I10 Essential (primary) hypertension; F10.10 Alcohol abuse, uncomplicated; J44.9 Chronic obstructive pulmonary disease, unspecified; Y90.9 Presence of alcohol in blood, level not specified; Z88.8 Allergy status to other drugs, medicaments and biological substances
CPT/HCPCS: 36415; 71020; 73564; 80048; 80305; 80320; 81001; 85027; 93005; 96360; 99285; J7030; G0480; G0481

== ENCOUNTER 2016-12-30 08:11 | Observation (INO) | payer BC ==
[~2016-12-30] VITALS: Ht 182.9 cm; Wt 126.6 kg
[~2016-12-30 08:11] MED LIST changes: +CYCL10TA2 PO
--- NOTE | 2016-12-30 08:39 | PHYS DOC ---
Past Medical History Past Medical History: Anxiety, Bronchitis, Diabetes-Type II, Hypertension Past Surgical History: Other Additional Past Surgical Histo: L KNEE Alcohol Use: Occasionally Drug Use: None Adult General Chief Complaint Chief Complaint: WEAKNESS/GENERALIZED HPI HPI Patient is a 56 year old male with a history of HTN and knee surgery in may presents to the ED complaining of fatigue and weakness 1 week. Patient states a week ago he was diagnosed with hypothyroidism. Has been having shortness of breath over the last week and when he woke up this morning he was very short of breath. Associated symptoms include left knee pain. Denies chest pain, dizziness, fever, nausea/vomiting, abdominal pain or headache. Review of Systems Review of Systems Constitutional: Denies fever or chills [] Eyes: Denies change in visual acuity, redness, or eye pain [] HENT: Denies nasal congestion or sore throat [] Respiratory: Denies cough. Complains of shortness of breath. [] Cardiovascular: No additional information not addressed in HPI [] GI: Denies abdominal pain, nausea, vomiting, bloody stools or diarrhea [] : Denies dysuria or hematuria [] Musculoskeletal: Denies back pain or joint pain [] Integument: Denies rash or skin lesions [] Neurologic: Denies headache, focal weakness or sensory changes [] Endocrine: Denies polyuria or polydipsia [] Current Medications Current Medications Current Medications Medications (Trade) Dose Ordered Sig/Tatum Start Time Stop Time Status Last Admin Dose Admin Info (Do NOT chart on this entry -- for MONITORING) 1 each PRN DAILY PRN 12/30/16 09:30 01/01/17 09:29 Iohexol (Omnipaque 300 Mg/ml) 75 ml 1X ONCE 12/30/16 09:30 12/30/16 09:31 DC 12/30/16 09:37 75 ML Allergies Allergies Allergies Coded Allergies Type Severity Reaction Last Updated Verified lisinopril Allergy Severe ANGIOEDEMA 06/09/16 Yes Physical Exam Physical Exam Constitutional: Well developed, well nourished, no acute distress, non-toxic appearance. [] HENT: Normocephalic, atraumatic, bilateral external ears normal, oropharynx moist, no oral exudates, nose normal. [] Eyes: PERRLA, EOMI, conjunctiva normal, no discharge. [] Neck: Normal range of motion, no tenderness, supple, no stridor. [] Cardiovascular:Heart rate regular rhythm, no murmur [] Lungs & Thorax: Bilateral breath sounds clear to auscultation [] Abdomen: Bowel sounds normal, soft, no tenderness, no masses, no pulsatile masses. [] Skin: Warm, dry, no erythema, no rash. [] Back: No tenderness, no CVA tenderness. [] Extremities: MILD LEFT KNEE/CALF TENDERNESS, no cyanosis, no clubbing, ROM intact, no edema. [] Neurologic: Alert and oriented X 3, normal motor function, normal sensory function, no focal deficits noted. [] Psychologic: Affect normal, judgement normal, mood normal. [] Current Patient Data Vital Signs Vital Signs Date Time Temp Pulse Resp B/P (MAP) Pulse Ox O2 Delivery O2 Flow Rate FiO2 12/30/16 09:50 78 20 155/80 (105) 95 Room Air 12/30/16 08:36 98.2 98.2 Lab Values Laboratory Tests Test 12/30/16 08:45 12/30/16 09:35 White Blood Count 5.6 x10^3/uL (4.0-11.0) Red Blood Count 4.23 x10^6/uL (4.30-5.70) L Hemoglobin 13.6 g/dL (13.0-17.5) Hematocrit 40.4 % (39.0-53.0) Mean Corpuscular Volume 95 fL (79-100) Mean Corpuscular Hemoglobin 32 pg (25-35) Mean Corpuscular Hemoglobin Concent 34 g/dL (31-37) Red Cell Distribution Width 14.2 % (11.5-14.5) Platelet Count 168 x10^3/uL (140-400) Neutrophils (%) (Auto) 53 % (31-73) Lymphocytes (%) (Auto) 36 % (24-48) Monocytes (%) (Auto) 7 % (0-9) Eosinophils (%) (Auto) 3 % (0-3) Basophils (%) (Auto) 1 % (0-3) Neutrophils # (Auto) 2.9 x10^3uL (1.8-7.7) Lymphocytes # (Auto) 2.0 x10^3/uL (1.0-4.8) Monocytes # (Auto) 0.4 x10^3/uL (0.0-1.1) Eosinophils # (Auto) 0.2 x10^3/uL (0.0-0.7) Basophils # (Auto) 0.0 x10^3/uL (0.0-0.2) Prothrombin Time 11.7 SEC (11.7-14.0) Prothrombin Time INR 0.9 (0.8-1.1) Sodium Level 142 mmol/L (136-145) Potassium Level 4.1 mmol/L (3.5-5.1) Chloride Level 103 mmol/L (98-107) Carbon Dioxide Level 32 mmol/L (21-32) Anion Gap 7 (6-14) Blood Urea Nitrogen 11 mg/dL (8-26) Creatinine 1.4 mg/dL (0.7-1.3) H Estimated GFR (Cockcroft-Gault) 63.7 BUN/Creatinine Ratio 8 (6-20) Glucose Level 160 mg/dL (70-99) H Calcium Level 9.0 mg/dL (8.5-10.1) Total Bilirubin 0.3 mg/dL (0.2-1.0) Direct Bilirubin 0.1 mg/dL (0.0-0.2) Aspartate Amino Transferase (AST) 22 U/L (15-37) Alanine Aminotransferase (ALT) 40 U/L (16-63) Alkaline Phosphatase 49 U/L (46-116) Creatine Kinase 244 U/L (39-308) Creatine Kinase MB (Mass) 1.2 ng/mL (0.0-3.6) Creatine Kinase MB Relative Index 0.5 % (0-4) Troponin I Quantitative < 0.017 ng/mL (0.000-0.055) TK-Iig-K-Type Natriuretic Peptide 10 pg/mL (0-124) Total Protein 7.1 g/dL (6.4-8.2) Albumin 3.5 g/dL (3.4-5.0) Albumin/Globulin Ratio 1.0 (1.0-1.7) Thyroid Stimulating Hormone (TSH) 2.246 uIU/mL (0.358-3.74) Urine Collection Type Unknown Urine Color Precious Urine Clarity Clear Urine pH 7.0 Urine Specific Frederic <=1.005 Urine Protein Negative mg/dL (NEG-TRACE) Urine Glucose (UA) Negative mg/dL (NEG) Urine Ketones (Stick) Negative mg/dL (NEG) Urine Blood Negative (NEG) Urine Nitrite Negative (NEG) Urine Bilirubin Negative (NEG) Urine Urobilinogen Dipstick 0.2 mg/dL (0.2 mg/dL) Urine Leukocyte Esterase Negative (NEG) Urine RBC 0 /HPF (0-2) Urine WBC 0 /HPF (0-4) Urine Bacteria 0 /HPF (0-FEW) Laboratory Tests 12/30/16 08:45 Laboratory Tests 12/30/16 08:45 EKG EKG [] Radiology/Procedures Radiology/Procedures PROCEDURE: CT ANGIOGRAPHY CHEST Examination: CT angiogram of the chest History: History of weakness, shortness of breath Comparison: 05/06/2015 Technique: Axial CT and radiographic images were performed with IV contrast. Coronal and sagittal reformats are performed PQRS Compliance Statement: One or more of the following individualized dose reduction techniques were utilized for this examination: 1. Automated exposure control 2. Adjustment of the mA and/or kV according to patient size 3. Use of iterative reconstruction technique. Findings: The visualized thyroid gland grossly appears unremarkable. The central airways are patent. Mild cardiomegaly. Mild coronary artery calcifications identified. The caliber of the aorta grossly appears unremarkable. There is only minimal contrast identified in the pulmonary artery and its branches. The evaluation for pulmonary embolus is not diagnostic on this examination as there is not enough contrast within the pulmonary artery and its branches Noted likely significant mediastinal lymphadenopathy identified. Trace pericardial effusion. Minimal bibasal lung atelectasis. Linear atelectasis right middle lobe of the lung. Mild degenerative changes of thoracic spine. The visualized adrenals grossly appears unremarkable. Impression: 1. Examination is nondiagnostic for pulmonary embolism as there is not enough contrast within the pulmonary artery and its branches. 2. Mild coronary artery calcifications. 3. Mild bibasal lung atelectasis.[] PROCEDURE: VENOUS LOWER EXTREMITY LEFT EXAM: Left lower extremity Doppler sonogram. HISTORY: Swelling. TECHNIQUE: Grayscale and color Doppler sonographic imaging of the left lower extremity veins with spectral waveform analysis was performed. COMPARISON: None. FINDINGS: There is normal color flow, normal compressibility and there are normal spectral waveforms within the lower extremity veins. IMPRESSION: No Doppler evidence of lower extremity venous thrombosis. Course & Med Decision Making Course & Med Decision Making Pertinent Labs and Imaging studies reviewed. (See chart for details) []Discussed case with patient's PCP, Dr. Roger. States patient has history of COPD also. Dr. Roger agrees to admission and further management patient. Dr. Howard placed for pulmonary consult at his request. Patient stable for admission. Dragon Disclaimer Dragon Disclaimer This electronic medical record was generated, in whole or in part, using a voice recognition dictation system. Departure Departure Impression: Primary Impression: Shortness of breath Disposition: ADMITTED INPATIENT Admitting Physician: Francisco Roger Condition: STABLE Referrals: FRANCISCO ROGER MD (PCP) FILEMON HOGUE Dec 30, 2016 08:39
[2016-12-30 08:54] LABS: BASO % 1 % (0-3); EOS % 3 % (0-3); HEMATOCRIT 40.4 % (39.0-53.0); HEMOGLOBIN 13.6 g/dL (13.0-17.5); LYMPH % 36 % (24-48); MEAN CORPUSCULAR HEMOGLOBIN 32 pg (25-35); MEAN CORPUSCULAR HGB CONC 34 g/dL (31-37); MEAN CORPUSCULAR VOLUME 95 fL (79-100); MONO % 7 % (0-9); NEUT % 53 % (31-73); PLATELET COUNT 168 x10^3/uL (140-400); RED BLOOD COUNT 4.23 x10^6/uL (4.30-5.70); RED CELL DISTRIBUTION WIDTH 14.2 % (11.5-14.5); WHITE BLOOD COUNT 5.6 x10^3/uL (4.0-11.0)
--- NOTE | 2016-12-30 08:59 | RAD ---
EXAM: CHEST 1 VIEW History: Weakness, fatigue, cough COMPARISON: 10/07/2016 TECHNIQUE: Single portable radiograph of the chest FINDINGS: The cardiac silhouette is unremarkable. The lungs are clear bilaterally. The costophrenic sulci are clear and well demarcated. IMPRESSION: No radiographic evidence of an acute cardiopulmonary process.
[2016-12-30 09:04] LABS: CREATININE 1.4 mg/dL (0.7-1.3); GFR 63.7; INR 0.9 (0.8-1.1); POTASSIUM 4.1 mmol/L (3.5-5.1); PROTHROMBIN TIME PATIENT 11.7 SEC (11.7-14.0)
[2016-12-30 09:09] LABS: ALBUMIN 3.5 g/dL (3.4-5.0); DIRECT BILIRUBIN 0.1 mg/dL (0.0-0.2); TOTAL BILIRUBIN 0.3 mg/dL (0.2-1.0); TOTAL PROTEIN 7.1 g/dL (6.4-8.2)
[2016-12-30 09:18] LABS: CKMB MASS 1.2 ng/mL (0.0-3.6)
[2016-12-30] MEDS ORDERED: CONTRAST GIVEN MC PRN (09:30)
[2016-12-30] MEDS ORDERED: IOHEXOL 300 MG/ML 75 ML VIAL IV ONE (09:30)
--- NOTE | 2016-12-30 09:37 | RAD ---
EXAM: Left lower extremity Doppler sonogram. HISTORY: Swelling. TECHNIQUE: Grayscale and color Doppler sonographic imaging of the left lower extremity veins with spectral waveform analysis was performed. COMPARISON: None. FINDINGS: There is normal color flow, normal compressibility and there are normal spectral waveforms within the lower extremity veins. IMPRESSION: No Doppler evidence of lower extremity venous thrombosis.
--- NOTE | 2016-12-30 09:59 | RAD ---
Examination: CT angiogram of the chest History: History of weakness, shortness of breath Comparison: 05/06/2015 Technique: Axial CT and radiographic images were performed with IV contrast. Coronal and sagittal reformats are performed PQRS Compliance Statement: One or more of the following individualized dose reduction techniques were utilized for this examination: 1. Automated exposure control 2. Adjustment of the mA and/or kV according to patient size 3. Use of iterative reconstruction technique. Findings: The visualized thyroid gland grossly appears unremarkable. The central airways are patent. Mild cardiomegaly. Mild coronary artery calcifications identified. The caliber of the aorta grossly appears unremarkable. There is only minimal contrast identified in the pulmonary artery and its branches. The evaluation for pulmonary embolus is not diagnostic on this examination as there is not enough contrast within the pulmonary artery and its branches Noted likely significant mediastinal lymphadenopathy identified. Trace pericardial effusion. Minimal bibasal lung atelectasis. Linear atelectasis right middle lobe of the lung. Mild degenerative changes of thoracic spine. The visualized adrenals grossly appears unremarkable. Impression: 1. Examination is nondiagnostic for pulmonary embolism as there is not enough contrast within the pulmonary artery and its branches. 2. Mild coronary artery calcifications. 3. Mild bibasal lung atelectasis.
[2016-12-30 10:05] LABS: BILIRUBIN,URINE NEGATIVE (NEG); GLUCOSE,URINE NEGATIVE (NEG); NITRITE,URINE NEGATIVE (NEG); PROTEIN,URINE NEGATIVE (NEG-TRACE); UROBILINOGEN,URINE 0.2 mg/dL (0.2 mg/dL)
[2016-12-30 10:30] LABS: BACTERIA,URINE 0 /HPF (0-FEW); RBC,URINE 0 /HPF (0-2); WBC,URINE 0 /HPF (0-4)
--- NOTE | 2016-12-30 10:53 | EKG ---
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
--- NOTE | 2016-12-30 10:57 | EKG ---
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
[2016-12-30 14:00] VITALS: BP 122/77
[2016-12-30 14:01] VITALS: BP 122/77
[2016-12-30] MEDS ORDERED: GABA-586 PO (14:43)
[2016-12-30] MEDS ORDERED: ALBUTEROL SULFATE 2.5 MG/3 ML NEBU. NEB PRN ×2 (16:00→17:00)
[2016-12-30] MEDS ORDERED: predniSONE 10 MG TABLET PO ONE (16:00)
[2016-12-30] MEDS ORDERED: OXYC-328 PO (16:49)
[2016-12-30] MEDS ORDERED: INSU100I13 SQ (16:49)
[2016-12-30] MEDS ORDERED: NICO1PAT21 TP (16:49)
[2016-12-30] MEDS ORDERED: LEVO50TA PO (16:49)
[2016-12-30] MEDS ORDERED: DEXTROSE 50% 25 GM / 50ML DISP.SYRIN. IV PRN (17:00)
[2016-12-30] MEDS: NICOTINE 21MG PATCH. TD SCH (17:54)
[2016-12-30] MEDS: ENOXAPARIN 40 MG/0.4 ML SYRINGE. SQ SCH (17:54)
[2016-12-30] MEDS: oxyCODONE IR 5 MG TABLET PO PRN (17:55)
[2016-12-30] MEDS: INSULIN ASPART 300 UNITS/3 ML INSULN.PEN SQ SCH (18:01)
[2016-12-30 19:00] VITALS: BP 129/80
[2016-12-30] MEDS: IPRATRPIUM/ALBUTEROL 0.5/2.5MG 3 ML NEBU. NEB SCH (20:04)
[2016-12-30] MEDS: GABAPENTIN 300 MG CAPSULE. PO SCH (20:36)
[2016-12-30] MEDS ORDERED: FLU VACC QS2017-18 (36MOS+)/PF 0.5 ML SYRINGE. VAX IM ONE (21:00)
[2016-12-30] MEDS ORDERED: INSULIN DETEMIR 300 UNITS/3 ML INSULN.PEN. SQ SCH ×2 (21:00)
[2016-12-30] MEDS ORDERED: QUEtiapine 100 MG TABLET. PO SCH (21:00)
[2016-12-30] MEDS ORDERED: INSULIN ASPART 300 UNITS/3 ML INSULN.PEN SQ ONE (21:15)
[2016-12-30 22:32] VITALS: BP 138/63
[2016-12-31 02:40] VITALS: BP 135/89
[2016-12-31 06:15] LABS: BASO % 0 % (0-3); EOS % 0 % (0-3); HEMATOCRIT 39.3 % (39.0-53.0); HEMOGLOBIN 13.5 g/dL (13.0-17.5); LYMPH # 0.9 x10^3/uL (1.0-4.8); LYMPH % 20 % (24-48); MEAN CORPUSCULAR HEMOGLOBIN 32 pg (25-35); MEAN CORPUSCULAR HGB CONC 34 g/dL (31-37); MEAN CORPUSCULAR VOLUME 94 fL (79-100); MONO % 3 % (0-9); NEUT % 76 % (31-73); PLATELET COUNT 168 x10^3/uL (140-400); RED BLOOD COUNT 4.18 x10^6/uL (4.30-5.70); RED CELL DISTRIBUTION WIDTH 13.9 % (11.5-14.5); WHITE BLOOD COUNT 4.5 x10^3/uL (4.0-11.0)
[2016-12-31 06:44] LABS: ALBUMIN 3.4 g/dL (3.4-5.0); ALBUMIN/GLOBULIN RATIO 0.9 (1.0-1.7); CALCIUM 9.2 mg/dL (8.5-10.1); CREATININE 1.4 mg/dL (0.7-1.3); GFR 63.7; POTASSIUM 4.9 mmol/L (3.5-5.1); TOTAL BILIRUBIN 0.3 mg/dL (0.2-1.0); TOTAL PROTEIN 7.1 g/dL (6.4-8.2)
[2016-12-31] MEDS ORDERED: LEVOTHYROXINE 50 MCG TABLET PO SCH (07:00)
[2016-12-31 07:10] VITALS: BP 134/93
[2016-12-31] MEDS: IPRATRPIUM/ALBUTEROL 0.5/2.5MG 3 ML NEBU. NEB SCH ×3 (07:11→16:36)
[2016-12-31] MEDS: NICOTINE 21MG PATCH. TD SCH (08:15)
[2016-12-31] MEDS: GABAPENTIN 300 MG CAPSULE. PO SCH ×2 (08:16→15:37)
[2016-12-31] MEDS: INSULIN ASPART 300 UNITS/3 ML INSULN.PEN SQ SCH ×3 (08:24→18:00)
[2016-12-31] MEDS ORDERED: LOSARTAN POTASSIUM 50 MG TABLET. PO SCH (09:00)
[2016-12-31] MEDS ORDERED: MULTIVITAMIN with MINERAL TABLET. PO SCH (09:00)
[2016-12-31] MEDS ORDERED: amLODIPine BESYLATE 5 MG TABLET PO SCH (09:00)
[2016-12-31] MEDS ORDERED: ASPIRIN ENTERIC COATED 81 MG TABLET.DR. PO SCH (09:00)
[2016-12-31] MEDS ORDERED: hydroCHLOROthiazide 12.5 MG CAPSULE PO SCH (09:00)
[2016-12-31] MEDS ORDERED: buPROPion XL 150 MG TAB.ER.24H. PO SCH (09:00)
--- NOTE | 2016-12-31 09:23 | PDOC1 ---
TINO YUN ACTUARIAL CLERK 12/31/16 0922: HISTORY AND PHYSICAL Chief Complaint Chief Complaint This 56 year old male has been admitted with a chief complaint of shortness of breath and L knee pain. He reports being diagnosed with hypothyroidism last week and started on Levothyroxine. On Thursday he noted fatigue onset at work and was unable to function so he left work early and went home. His L knee pain was at 10 and he took an Oxycodone and laid down to sleep. Thursday morning he woke with shortness of breath and was anxious. There was no chest pain. His brought him to the ER for evaluation. Review of work up: CXR negative, EKG no acute changes, CE and troponin negative, TSH 2.46 and remainder lab unremarkable except for hyperglycemia and chronic Cr 1.4. A CTA of chest was inconclusive as the PA and branches did not fill with contrast. He was given nebulizer treatment and Prednisone 30mg along with Novolog 6units and admitted. Past Medical History Cardiovascular: HTN, Hyperlipidemia Pulmonary: COPD GI: GERD, Other (h/o gastritis and duodenitis ) Heme/Onc: Iron deficiency Anemia Hepatobiliary: Cirrhosis (ETOH w/o ascites ) Psych: Anxiety, Addictions (h/o alcoholism-last drink >9 months ago. ), Depression, Panic (w/o agoraphobia ), Other Musculoskeletal: low back pain (chronic intermittent w/o sciatica) Rheumatologic: Gout Renal/: Chronic renal insuff (CKDII), Benign prostatic enlarg. Endocrine: Diabetes (Type II insulin with neuropathy ), Hypothyroidism (newly diagnosed ) Past Surgical History Past Surgical History: Arthroscopy (knee meniscal tear L with menicus repair ) Past Social History PSH , supportive , 10 cig/day since age 26 yo, alcoholism with last drink October 2016, neg illicit drug use. Review of Symptoms Review of Symptoms A 14 point ROS was completed with the following noted as positive: per HPI Other systems reviewed and negative. Medications Medications reviewed and reconciled. Allergy Allergies Coded Allergies Type Severity Reaction Last Updated Verified lisinopril Allergy Severe ANGIOEDEMA 06/09/16 Yes Physical Exam Physical Exam General appearance - alert,well appearing, and in no distress Mental Status - alert, oriented to person, place, and time, affect appropriate to mood Head - normal Chest - clear to auscultation, no wheezes, decreased post lobes Heart - S1 and S2 normal Abdomen - soft, nontender, nondistended, obese, BS + Neurological - no acute focal neurological deficit noted Musculoskeletal - no muscular tenderness noted Extremities - no pedal edema, tender post L knee, pain with weight bearing. Skin - warm and dry VTE Prophylaxis Ordered VTE Prophylaxis Devices: Yes VTE Pharmacological Prophylaxi: Yes Assessment Labs Laboratory Tests Test 12/30/16 08:45 12/30/16 09:35 12/30/16 11:25 12/30/16 14:25 White Blood Count 5.6 x10^3/uL (4.0-11.0) Red Blood Count 4.23 x10^6/uL (4.30-5.70) Hemoglobin 13.6 g/dL (13.0-17.5) Hematocrit 40.4 % (39.0-53.0) Mean Corpuscular Volume 95 fL (79-100) Mean Corpuscular Hemoglobin 32 pg (25-35) Mean Corpuscular Hemoglobin Concent 34 g/dL (31-37) Red Cell Distribution Width 14.2 % (11.5-14.5) Platelet Count 168 x10^3/uL (140-400) Neutrophils (%) (Auto) 53 % (31-73) Lymphocytes (%) (Auto) 36 % (24-48) Monocytes (%) (Auto) 7 % (0-9) Eosinophils (%) (Auto) 3 % (0-3) Basophils (%) (Auto) 1 % (0-3) Neutrophils # (Auto) 2.9 x10^3uL (1.8-7.7) Lymphocytes # (Auto) 2.0 x10^3/uL (1.0-4.8) Monocytes # (Auto) 0.4 x10^3/uL (0.0-1.1) Eosinophils # (Auto) 0.2 x10^3/uL (0.0-0.7) Basophils # (Auto) 0.0 x10^3/uL (0.0-0.2) Prothrombin Time 11.7 SEC (11.7-14.0) Prothromb Time International Ratio 0.9 (0.8-1.1) Sodium Level 142 mmol/L (136-145) Potassium Level 4.1 mmol/L (3.5-5.1) Chloride Level 103 mmol/L (98-107) Carbon Dioxide Level 32 mmol/L (21-32) Anion Gap 7 (6-14) Blood Urea Nitrogen 11 mg/dL (8-26) Creatinine 1.4 mg/dL (0.7-1.3) Estimated GFR (Cockcroft-Gault) 63.7 BUN/Creatinine Ratio 8 (6-20) Glucose Level 160 mg/dL (70-99) Calcium Level 9.0 mg/dL (8.5-10.1) Total Bilirubin 0.3 mg/dL (0.2-1.0) Direct Bilirubin 0.1 mg/dL (0.0-0.2) Aspartate Amino Transf (AST/SGOT) 22 U/L (15-37) Alanine Aminotransferase (ALT/SGPT) 40 U/L (16-63) Alkaline Phosphatase 49 U/L (46-116) Creatine Kinase 244 U/L (39-308) Creatine Kinase MB (Mass) 1.2 ng/mL (0.0-3.6) Creatine Kinase MB Relative Index 0.5 % (0-4) Troponin I Quantitative < 0.017 ng/mL (0.000-0.055) < 0.017 ng/mL (0.000-0.055) < 0.017 ng/mL (0.000-0.055) IP-Rpk-Y-Type Natriuretic Peptide 10 pg/mL (0-124) Total Protein 7.1 g/dL (6.4-8.2) Albumin 3.5 g/dL (3.4-5.0) Albumin/Globulin Ratio 1.0 (1.0-1.7) Thyroid Stimulating Hormone (TSH) 2.246 uIU/mL (0.358-3.74) Urine Collection Type Unknown Urine Color Precious Urine Clarity Clear Urine pH 7.0 Urine Specific [place] <=1.005 Urine Protein Negative mg/dL (NEG-TRACE) Urine Glucose (UA) Negative mg/dL (NEG) Urine Ketones (Stick) Negative mg/dL (NEG) Urine Blood Negative (NEG) Urine Nitrite Negative (NEG) Urine Bilirubin Negative (NEG) Urine Urobilinogen Dipstick 0.2 mg/dL (0.2 mg/dL) Urine Leukocyte Esterase Negative (NEG) Urine RBC 0 /HPF (0-2) Urine WBC 0 /HPF (0-4) Urine Bacteria 0 /HPF (0-FEW) Test 12/30/16 16:11 12/30/16 20:25 12/30/16 20:32 12/31/16 05:35 Glucose (Fingerstick) 212 mg/dL (70-99) 309 mg/dL (70-99) Troponin I Quantitative < 0.017 ng/mL (0.000-0.055) White Blood Count 4.5 x10^3/uL (4.0-11.0) Red Blood Count 4.18 x10^6/uL (4.30-5.70) Hemoglobin 13.5 g/dL (13.0-17.5) Hematocrit 39.3 % (39.0-53.0) Mean Corpuscular Volume 94 fL (79-100) Mean Corpuscular Hemoglobin 32 pg (25-35) Mean Corpuscular Hemoglobin Concent 34 g/dL (31-37) Red Cell Distribution Width 13.9 % (11.5-14.5) Platelet Count 168 x10^3/uL (140-400) Neutrophils (%) (Auto) 76 % (31-73) Lymphocytes (%) (Auto) 20 % (24-48) Monocytes (%) (Auto) 3 % (0-9) Eosinophils (%) (Auto) 0 % (0-3) Basophils (%) (Auto) 0 % (0-3) Neutrophils # (Auto) 3.4 x10^3uL (1.8-7.7) Lymphocytes # (Auto) 0.9 x10^3/uL (1.0-4.8) Monocytes # (Auto) 0.1 x10^3/uL (0.0-1.1) Eosinophils # (Auto) 0.0 x10^3/uL (0.0-0.7) Basophils # (Auto) 0.0 x10^3/uL (0.0-0.2) Sodium Level 139 mmol/L (136-145) Potassium Level 4.9 mmol/L (3.5-5.1) Chloride Level 102 mmol/L (98-107) Carbon Dioxide Level 30 mmol/L (21-32) Anion Gap 7 (6-14) Blood Urea Nitrogen 15 mg/dL (8-26) Creatinine 1.4 mg/dL (0.7-1.3) Estimated GFR (Cockcroft-Gault) 63.7 BUN/Creatinine Ratio 11 (6-20) Glucose Level 303 mg/dL (70-99) Calcium Level 9.2 mg/dL (8.5-10.1) Total Bilirubin 0.3 mg/dL (0.2-1.0) Aspartate Amino Transf (AST/SGOT) 14 U/L (15-37) Alanine Aminotransferase (ALT/SGPT) 37 U/L (16-63) Alkaline Phosphatase 55 U/L (46-116) Total Protein 7.1 g/dL (6.4-8.2) Albumin 3.4 g/dL (3.4-5.0) Albumin/Globulin Ratio 0.9 (1.0-1.7) Test 12/31/16 07:12 Glucose (Fingerstick) 280 mg/dL (70-99) Laboratory Tests Test 12/30/16 09:35 12/30/16 11:25 12/30/16 14:25 12/30/16 16:11 Urine Collection Type Unknown Urine Color Precious Urine Clarity Clear Urine pH 7.0 Urine Specific [place] <=1.005 Urine Protein Negative mg/dL (NEG-TRACE) Urine Glucose (UA) Negative mg/dL (NEG) Urine Ketones (Stick) Negative mg/dL (NEG) Urine Blood Negative (NEG) Urine Nitrite Negative (NEG) Urine Bilirubin Negative (NEG) Urine Urobilinogen Dipstick 0.2 mg/dL (0.2 mg/dL) Urine Leukocyte Esterase Negative (NEG) Urine RBC 0 /HPF (0-2) Urine WBC 0 /HPF (0-4) Urine Bacteria 0 /HPF (0-FEW) Troponin I Quantitative < 0.017 ng/mL (0.000-0.055) < 0.017 ng/mL (0.000-0.055) Glucose (Fingerstick) 212 mg/dL (70-99) Test 12/30/16 20:25 12/30/16 20:32 12/31/16 05:35 12/31/16 07:12 Troponin I Quantitative < 0.017 ng/mL (0.000-0.055) Glucose (Fingerstick) 309 mg/dL (70-99) 280 mg/dL (70-99) White Blood Count 4.5 x10^3/uL (4.0-11.0) Red Blood Count 4.18 x10^6/uL (4.30-5.70) Hemoglobin 13.5 g/dL (13.0-17.5) Hematocrit 39.3 % (39.0-53.0) Mean Corpuscular Volume 94 fL (79-100) Mean Corpuscular Hemoglobin 32 pg (25-35) Mean Corpuscular Hemoglobin Concent 34 g/dL (31-37) Red Cell Distribution Width 13.9 % (11.5-14.5) Platelet Count 168 x10^3/uL (140-400) Neutrophils (%) (Auto) 76 % (31-73) Lymphocytes (%) (Auto) 20 % (24-48) Monocytes (%) (Auto) 3 % (0-9) Eosinophils (%) (Auto) 0 % (0-3) Basophils (%) (Auto) 0 % (0-3) Neutrophils # (Auto) 3.4 x10^3uL (1.8-7.7) Lymphocytes # (Auto) 0.9 x10^3/uL (1.0-4.8) Monocytes # (Auto) 0.1 x10^3/uL (0.0-1.1) Eosinophils # (Auto) 0.0 x10^3/uL (0.0-0.7) Basophils # (Auto) 0.0 x10^3/uL (0.0-0.2) Sodium Level 139 mmol/L (136-145) Potassium Level 4.9 mmol/L (3.5-5.1) Chloride Level 102 mmol/L (98-107) Carbon Dioxide Level 30 mmol/L (21-32) Anion Gap 7 (6-14) Blood Urea Nitrogen 15 mg/dL (8-26) Creatinine 1.4 mg/dL (0.7-1.3) Estimated GFR (Cockcroft-Gault) 63.7 BUN/Creatinine Ratio 11 (6-20) Glucose Level 303 mg/dL (70-99) Calcium Level 9.2 mg/dL (8.5-10.1) Total Bilirubin 0.3 mg/dL (0.2-1.0) Aspartate Amino Transf (AST/SGOT) 14 U/L (15-37) Alanine Aminotransferase (ALT/SGPT) 37 U/L (16-63) Alkaline Phosphatase 55 U/L (46-116) Total Protein 7.1 g/dL (6.4-8.2) Albumin 3.4 g/dL (3.4-5.0) Albumin/Globulin Ratio 0.9 (1.0-1.7) Plan Plan 1. Acute episode dyspnea with sleep apnea probable and COPD underlying 2. A/C L knee pain with h/o meniscal tear repair and injection approx 2months ago 3. HTN 4. DM II neuropathy insulin not controlled with hyperglycemia POA 5. hyperlipidemia 6. CKD II 7. hypothyroid 8. anxiety/depress 9. alcoholism in remission 10. h/o gastritis/duodenitis 11. h/o Fe deficiency anemia 12. h/o alcoholic hepatitis w/o ascites 13. gout 14. GERD 15. h/o LBP w/o sciatica 16, h/o panic w/o agoraphobia PLAN: 12/31 dyspnea with h/o COPD -pulmonary consulted, Prednisone 30mg ED x1, CT chest negative CTA chest -incomplete, insufficient contrast in PA and branches nebulizer, O2 supplement, Sleep apnea probable: snoring, obstructive noses when breathing-OP sleep study will be needed Plan DC home with Pro Air prn DM II -continue home insulin dosing, FSBS, SSI, BS [id number] for hyperglycemia r/t prednisone oral in ED and possible knee injection CKD II - Admit BUN 11 Cr 1.4, monitor, no ARF or LURDES fatigue - hypothyroid medication started TSH 2.246, fatigue + SOA =ECHO prior to discharge, CE and EKG unremarkable HTN - continue home meds. DVT/GI prophylaxis - SCD/ERNESTINA, Lovenox, PPI L knee pain - consult Dr. Goss For more details regarding further plans, please refer to the orders DC home initiated. Appreciate consultants assistance. If okay with Dr. Howard and Dr. Goss, discharge home today, f/u office Thursday next week. SINDY ROGER MD 12/31/16 1007: HISTORY AND PHYSICAL Plan Plan The patient was seen and examined by me. Chart reviewed and plan of care formulated. Discussed with, reviewed and agree with DIRECTOR INFORMATICS's notes, plan of care and orders with modifications as necessary. Discharge Management - 35 minutes. d/w .He will give knee injection. D/w patient and condition,Rx,TKA versus waiting etc. TINO YUN APRN Dec 31, 2016 09:22 SINDY ROGER MD Dec 31, 2016 10:07
--- NOTE | 2016-12-31 09:42 | DISCH ---
DISCHARGE DISCHARGE DATE: Dec 31, 2016 CONDITION ON DISCHARGE: Stable POST DISCHARGE ORDERS ACTIVITY ORDERS: Activity as tolerated WEIGHT BEARING STATUS: As tolerated DIET AFTER DISCHARGE: Cardiac (avoid concentrated sweets ) CHECKS AFTER DISCHARGE CHECKS AFTER DISCHARGE: Check blood sugar, ac/hs FOLLOW-UP PHYSICIAN FOLLOW-UP: Dr. Bryant or Corey next Thursday TREATMENT/EQUIPMENT ORDERS ADAPTIVE EQUIPMENT NEEDED: None TINO YUN APRN Dec 31, 2016 09:42
[2016-12-31] MEDS ORDERED: INSU100V SQ (09:55)
--- NOTE | 2016-12-31 10:00 | PDOC3 ---
DISCHARGE 12/31/16 Brief Hospital Course: This 56 year old male has been admitted with a chief complaint of shortness of breath and L knee pain. He reports being diagnosed with hypothyroidism last week and started on Levothyroxine. On Thursday he noted fatigue onset at work and was unable to function so he left work early and went home. His L knee pain was at 10 and he took an Oxycodone and laid down to sleep. Thursday morning he woke with shortness of breath and was anxious. There was no chest pain. His brought him to the ER for evaluation. Review of work up: CXR negative, EKG no acute changes, CE and troponin negative, TSH 2.46 and remainder lab unremarkable except for hyperglycemia and chronic Cr 1.4. A CTA of chest was inconclusive as the PA and branches did not fill with contrast. He was given nebulizer treatment and Prednisone 30mg along with Novolog 6units and admitted. He was seen by pulmonary. ECHO report is pending. Plan to DC home and schedule OP sleep study and PFTs. Please see DC orders. Past Medical History Cardiovascular: HTN, Hyperlipidemia Pulmonary: COPD GI: GERD, Other (h/o gastritis and duodenitis ) Heme/Onc: Iron deficiency Anemia Hepatobiliary: Cirrhosis (ETOH w/o ascites ) Psych: Anxiety, Addictions (h/o alcoholism-last drink >9 months ago. ), Depression, Panic (w/o agoraphobia ), Other Musculoskeletal: low back pain (chronic intermittent w/o sciatica) Rheumatologic: Gout Renal/: Chronic renal insuff (CKDII), Benign prostatic enlarg. Endocrine: Diabetes (Type II insulin with neuropathy ), Hypothyroidism (newly diagnosed ) Past Surgical History Past Surgical History: Arthroscopy (knee meniscal tear L with menicus repair ) Past Social History PSH , supportive , 10 cig/day since age 26 yo, alcoholism with last drink October 2016, neg illicit drug use. Review of Symptoms Review of Symptoms A 14 point ROS was completed with the following noted as positive: per HPI Other systems reviewed and negative. Medications Medications reviewed and reconciled. Allergy Allergies Coded Allergies Type Severity Reaction Last Updated Verified lisinopril Allergy Severe ANGIOEDEMA 06/09/16 Yes Physical Exam Physical Exam General appearance - alert,well appearing, and in no distress Mental Status - alert, oriented to person, place, and time, affect appropriate to mood Head - normal Chest - clear to auscultation, no wheezes, decreased post lobes Heart - S1 and S2 normal Abdomen - soft, nontender, nondistended, obese, BS + Neurological - no acute focal neurological deficit noted Musculoskeletal - no muscular tenderness noted Extremities - no pedal edema, tender post L knee, pain with weight bearing. Skin - warm and dry VTE Prophylaxis Ordered VTE Prophylaxis Devices: Yes VTE Pharmacological Prophylaxi: Yes Assessment Labs Laboratory Tests Test 12/30/16 08:45 12/30/16 09:35 12/30/16 11:25 12/30/16 14:25 White Blood Count 5.6 x10^3/uL (4.0-11.0) Red Blood Count 4.23 x10^6/uL (4.30-5.70) Hemoglobin 13.6 g/dL (13.0-17.5) Hematocrit 40.4 % (39.0-53.0) Mean Corpuscular Volume 95 fL (79-100) Mean Corpuscular Hemoglobin 32 pg (25-35) Mean Corpuscular Hemoglobin Concent 34 g/dL (31-37) Red Cell Distribution Width 14.2 % (11.5-14.5) Platelet Count 168 x10^3/uL (140-400) Neutrophils (%) (Auto) 53 % (31-73) Lymphocytes (%) (Auto) 36 % (24-48) Monocytes (%) (Auto) 7 % (0-9) Eosinophils (%) (Auto) 3 % (0-3) Basophils (%) (Auto) 1 % (0-3) Neutrophils # (Auto) 2.9 x10^3uL (1.8-7.7) Lymphocytes # (Auto) 2.0 x10^3/uL (1.0-4.8) Monocytes # (Auto) 0.4 x10^3/uL (0.0-1.1) Eosinophils # (Auto) 0.2 x10^3/uL (0.0-0.7) Basophils # (Auto) 0.0 x10^3/uL (0.0-0.2) Prothrombin Time 11.7 SEC (11.7-14.0) Prothromb Time International Ratio 0.9 (0.8-1.1) Sodium Level 142 mmol/L (136-145) Potassium Level 4.1 mmol/L (3.5-5.1) Chloride Level 103 mmol/L (98-107) Carbon Dioxide Level 32 mmol/L (21-32) Anion Gap 7 (6-14) Blood Urea Nitrogen 11 mg/dL (8-26) Creatinine 1.4 mg/dL (0.7-1.3) Estimated GFR (Cockcroft-Gault) 63.7 BUN/Creatinine Ratio 8 (6-20) Glucose Level 160 mg/dL (70-99) Calcium Level 9.0 mg/dL (8.5-10.1) Total Bilirubin 0.3 mg/dL (0.2-1.0) Direct Bilirubin 0.1 mg/dL (0.0-0.2) Aspartate Amino Transf (AST/SGOT) 22 U/L (15-37) Alanine Aminotransferase (ALT/SGPT) 40 U/L (16-63) Alkaline Phosphatase 49 U/L (46-116) Creatine Kinase 244 U/L (39-308) Creatine Kinase MB (Mass) 1.2 ng/mL (0.0-3.6) Creatine Kinase MB Relative Index 0.5 % (0-4) Troponin I Quantitative < 0.017 ng/mL (0.000-0.055) < 0.017 ng/mL (0.000-0.055) < 0.017 ng/mL (0.000-0.055) RE-Pca-H-Type Natriuretic Peptide 10 pg/mL (0-124) Total Protein 7.1 g/dL (6.4-8.2) Albumin 3.5 g/dL (3.4-5.0) Albumin/Globulin Ratio 1.0 (1.0-1.7) Thyroid Stimulating Hormone (TSH) 2.246 uIU/mL (0.358-3.74) Urine Collection Type Unknown Urine Color Precious Urine Clarity Clear Urine pH 7.0 Urine Specific [place] <=1.005 Urine Protein Negative mg/dL (NEG-TRACE) Urine Glucose (UA) Negative mg/dL (NEG) Urine Ketones (Stick) Negative mg/dL (NEG) Urine Blood Negative (NEG) Urine Nitrite Negative (NEG) Urine Bilirubin Negative (NEG) Urine Urobilinogen Dipstick 0.2 mg/dL (0.2 mg/dL) Urine Leukocyte Esterase Negative (NEG) Urine RBC 0 /HPF (0-2) Urine WBC 0 /HPF (0-4) Urine Bacteria 0 /HPF (0-FEW) Test 12/30/16 16:11 12/30/16 20:25 12/30/16 20:32 12/31/16 05:35 Glucose (Fingerstick) 212 mg/dL (70-99) 309 mg/dL (70-99) Troponin I Quantitative < 0.017 ng/mL (0.000-0.055) White Blood Count 4.5 x10^3/uL (4.0-11.0) Red Blood Count 4.18 x10^6/uL (4.30-5.70) Hemoglobin 13.5 g/dL (13.0-17.5) Hematocrit 39.3 % (39.0-53.0) Mean Corpuscular Volume 94 fL (79-100) Mean Corpuscular Hemoglobin 32 pg (25-35) Mean Corpuscular Hemoglobin Concent 34 g/dL (31-37) Red Cell Distribution Width 13.9 % (11.5-14.5) Platelet Count 168 x10^3/uL (140-400) Neutrophils (%) (Auto) 76 % (31-73) Lymphocytes (%) (Auto) 20 % (24-48) Monocytes (%) (Auto) 3 % (0-9) Eosinophils (%) (Auto) 0 % (0-3) Basophils (%) (Auto) 0 % (0-3) Neutrophils # (Auto) 3.4 x10^3uL (1.8-7.7) Lymphocytes # (Auto) 0.9 x10^3/uL (1.0-4.8) Monocytes # (Auto) 0.1 x10^3/uL (0.0-1.1) Eosinophils # (Auto) 0.0 x10^3/uL (0.0-0.7) Basophils # (Auto) 0.0 x10^3/uL (0.0-0.2) Sodium Level 139 mmol/L (136-145) Potassium Level 4.9 mmol/L (3.5-5.1) Chloride Level 102 mmol/L (98-107) Carbon Dioxide Level 30 mmol/L (21-32) Anion Gap 7 (6-14) Blood Urea Nitrogen 15 mg/dL (8-26) Creatinine 1.4 mg/dL (0.7-1.3) Estimated GFR (Cockcroft-Gault) 63.7 BUN/Creatinine Ratio 11 (6-20) Glucose Level 303 mg/dL (70-99) Calcium Level 9.2 mg/dL (8.5-10.1) Total Bilirubin 0.3 mg/dL (0.2-1.0) Aspartate Amino Transf (AST/SGOT) 14 U/L (15-37) Alanine Aminotransferase (ALT/SGPT) 37 U/L (16-63) Alkaline Phosphatase 55 U/L (46-116) Total Protein 7.1 g/dL (6.4-8.2) Albumin 3.4 g/dL (3.4-5.0) Albumin/Globulin Ratio 0.9 (1.0-1.7) Test 12/31/16 07:12 Glucose (Fingerstick) 280 mg/dL (70-99) Laboratory Tests Test 12/30/16 09:35 12/30/16 11:25 12/30/16 14:25 12/30/16 16:11 Urine Collection Type Unknown Urine Color Precious Urine Clarity Clear Urine pH 7.0 Urine Specific [place] <=1.005 Urine Protein Negative mg/dL (NEG-TRACE) Urine Glucose (UA) Negative mg/dL (NEG) Urine Ketones (Stick) Negative mg/dL (NEG) Urine Blood Negative (NEG) Urine Nitrite Negative (NEG) Urine Bilirubin Negative (NEG) Urine Urobilinogen Dipstick 0.2 mg/dL (0.2 mg/dL) Urine Leukocyte Esterase Negative (NEG) Urine RBC 0 /HPF (0-2) Urine WBC 0 /HPF (0-4) Urine Bacteria 0 /HPF (0-FEW) Troponin I Quantitative < 0.017 ng/mL (0.000-0.055) < 0.017 ng/mL (0.000-0.055) Glucose (Fingerstick) 212 mg/dL (70-99) Test 12/30/16 20:25 12/30/16 20:32 12/31/16 05:35 12/31/16 07:12 Troponin I Quantitative < 0.017 ng/mL (0.000-0.055) Glucose (Fingerstick) 309 mg/dL (70-99) 280 mg/dL (70-99) White Blood Count 4.5 x10^3/uL (4.0-11.0) Red Blood Count 4.18 x10^6/uL (4.30-5.70) Hemoglobin 13.5 g/dL (13.0-17.5) Hematocrit 39.3 % (39.0-53.0) Mean Corpuscular Volume 94 fL (79-100) Mean Corpuscular Hemoglobin 32 pg (25-35) Mean Corpuscular Hemoglobin Concent 34 g/dL (31-37) Red Cell Distribution Width 13.9 % (11.5-14.5) Platelet Count 168 x10^3/uL (140-400) Neutrophils (%) (Auto) 76 % (31-73) Lymphocytes (%) (Auto) 20 % (24-48) Monocytes (%) (Auto) 3 % (0-9) Eosinophils (%) (Auto) 0 % (0-3) Basophils (%) (Auto) 0 % (0-3) Neutrophils # (Auto) 3.4 x10^3uL (1.8-7.7) Lymphocytes # (Auto) 0.9 x10^3/uL (1.0-4.8) Monocytes # (Auto) 0.1 x10^3/uL (0.0-1.1) Eosinophils # (Auto) 0.0 x10^3/uL (0.0-0.7) Basophils # (Auto) 0.0 x10^3/uL (0.0-0.2) Sodium Level 139 mmol/L (136-145) Potassium Level 4.9 mmol/L (3.5-5.1) Chloride Level 102 mmol/L (98-107) Carbon Dioxide Level 30 mmol/L (21-32) Anion Gap 7 (6-14) Blood Urea Nitrogen 15 mg/dL (8-26) Creatinine 1.4 mg/dL (0.7-1.3) Estimated GFR (Cockcroft-Gault) 63.7 BUN/Creatinine Ratio 11 (6-20) Glucose Level 303 mg/dL (70-99) Calcium Level 9.2 mg/dL (8.5-10.1) Total Bilirubin 0.3 mg/dL (0.2-1.0) Aspartate Amino Transf (AST/SGOT) 14 U/L (15-37) Alanine Aminotransferase (ALT/SGPT) 37 U/L (16-63) Alkaline Phosphatase 55 U/L (46-116) Total Protein 7.1 g/dL (6.4-8.2) Albumin 3.4 g/dL (3.4-5.0) Albumin/Globulin Ratio 0.9 (1.0-1.7) Plan Plan 1. Acute episode dyspnea with sleep apnea probable and COPD underlying 2. A/C L knee pain with h/o meniscal tear repair and injection approx 2months ago 3. HTN 4. DM II neuropathy insulin not controlled with hyperglycemia POA 5. hyperlipidemia 6. CKD II 7. hypothyroid 8. anxiety/depress 9. alcoholism in remission 10. h/o gastritis/duodenitis 11. h/o Fe deficiency anemia 12. h/o alcoholic hepatitis w/o ascites 13. gout 14. GERD 15. h/o LBP w/o sciatica 16, h/o panic w/o agoraphobia PLAN: 12/31 dyspnea with h/o COPD -pulmonary consulted, Prednisone 30mg ED x1, CT chest negative CTA chest -incomplete, insufficient contrast in PA and branches nebulizer, O2 supplement, Sleep apnea probable: snoring, obstructive noses when breathing-OP sleep study will be needed Plan DC home with Pro Air prn DM II -continue home insulin dosing, FSBS, SSI, BS [id number] for hyperglycemia r/t prednisone oral in ED and possible knee injection CKD II - Admit BUN 11 Cr 1.4, monitor, no ARF or LURDES fatigue - hypothyroid medication started TSH 2.246, fatigue + SOA =ECHO prior to discharge, CE and EKG unremarkable HTN - continue home meds. DVT/GI prophylaxis - SCD/ERNESTINA, Lovenox, PPI L knee pain - consult Dr. Goss For more details regarding further plans, please refer to the orders DC home initiated. Appreciate consultants assistance. If okay with Dr. Howard and Dr. Goss, discharge home today, f/u office Thursday next week. TINO YUN APRN Dec 31, 2016 09:22 TINO YUN APRN Dec 31, 2016 10:00
[2016-12-31] MEDS ORDERED: methylPREDNISolone ACETATE 40 MG/ML VIAL. IM ONE (10:15)
[2016-12-31] MEDS ORDERED: BUPIVACAINE MPF 0.25% 10 ML VIAL. IJ ONE (10:15)
[2016-12-31 10:25] VITALS: BP 141/85
[2016-12-31 14:17] VITALS: BP 135/86
--- NOTE | 2016-12-31 15:38 | RAD ---
MR of the left knee Indication: Posterolateral pain for 2 months. History of arthroscopic surgery with meniscal repair. Technique: The standard multiplanar sequences are obtained. COMPARISON: None are available Findings: Medial meniscus:Intact. Lateral meniscus: There is a displaced bucket handle type tear, with a large component of posterior horn and body flipped anteriorly, adjacent to the anterior horn, and medially, into the intracondylar notch. Anterior cruciate ligament: Intact Posterior cruciate ligament: Intact Medial collateral ligament: Intact. Iliotibial band: Intact. Posterolateral structures: Fibular collateral ligament, biceps tendon and popliteus tendon are intact. Extensor mechanism: Intact. Fluid: Moderate joint effusion. Small Ochoa's cyst with some leakage or rupture into the upper medial calf. Articular cartilage -patellofemoral joint:Intact -medial compartment:Intact -lateral compartment: Moderate chondromalacia at the posterior lateral tibial plateau. Bones: Subchondral bone lesion at the posterior aspect of the medial femoral condyle the location morphology are most suspicious for osteonecrosis. There is also some partially visualized intramedullary marrow changes within the distal aspect of the femoral diaphysis also with an appearance suggesting osteonecrosis. Tiny similar focus identified within the proximal tibial metaphysis. No acute fracture or aggressive bone destruction. Soft tissue: Mild anterior subcutaneous edema. Impression: 1. Displaced bucket-handle type tear of the lateral meniscus, with large posterior fragment flipped anteriorly and medially. 2. Areas of marrow abnormality, most likely due to osteonecrosis, at the subchondral posterior medial femoral condyle, distal femoral shaft and proximal tibial shaft. 3. Small Ochoa's cyst with rupture or leakage into the upper medial calf. Electronically signed by: Sukh Nieto MD (12/31/2016 3:35 PM) [facility]
--- NOTE | 2016-12-31 15:39 | RAD ---
Examination: Frontal view of the bilateral knees History: History of pain Comparison: Left knee from 10/07/2016 Findings Mild joint space loss identified in the medial compartment of the bilateral knees likely due to degeneration. 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 2. Mild bilateral medial compartment degenerative changes.
--- NOTE | 2016-12-31 15:49 | CARD ---
APPROVED REPORT EXAM: Two-dimensional and M-mode echocardiogram with Doppler and color Doppler. Other Information Quality : Average Rhythm : NSR INDICATION Dyspnea Fatigue 2D DIMENSIONS RVDd2.9 (2.9-3.5cm)Left Atrium(2D)3.5 (1.6-4.0cm) IVSd1.1 (0.7-1.1cm)Aortic Root(2D)3.1 (2.0-3.7cm) LVDd5.6 (3.9-5.9cm)LVOT Diameter2.0 (1.8-2.4cm) PWd1.1 (0.7-1.1cm)LVDs3.0 (2.5-4.0cm) FS (%) 35.5 %SV116.0 ml LVEF(%)66.3 (>50%) Aortic Valve AoV Peak Jonathan.136.9cm/sAoV VTI21.5cm AO Peak GR.7.5mmHgLVOT Peak Jonathan.106.2cm/s LVOT VTI 19.74cmAO Mean GR.4mmHg ARIEL (VMAX)2.11wg8TNJ (VTI)2.92cm2 Mitral Valve MV E Nzqqbeuq13.5cm/sMV DECEL ZGOH242ms MV A Vuiwufzf34.2cm/sMV ZHP55zt E/A Ratio1.0MV A Shwfkdij64kp MVA (PHT)3.85cm2 TDI E/Lateral E'8.1E/Medial E'11.2 Pulmonary Valve PV Peak Jbobqyni650.3cm/sPV Peak Grad.5mmHg RVOT VTI15.6cm Tricuspid Valve TR P. Xknuqtpe633tm/sRAP MUSUJZBV8ixDo TR Peak Gr.80fsZsDEWB61qsZd Pulmonary Vein S1 Tkiddykt35.4cm/sD2 Txhokban56.7cm/s LEFT VENTRICLE The left ventricle is normal size. There is normal left ventricular wall thickness. Left ventricle sy stolic function is normal. The Ejection Fraction is 60-65%. There is normal LV segmental wall motion. The left ventricular diastolic function and filling is normal for age. There is no ventricular septa l defect visualized. RIGHT VENTRICLE The right ventricle is normal size. The right ventricular systolic function is normal. ATRIA The left atrium size is normal. The right atrium size is normal. The interatrial septum is intact wit h no evidence for an atrial septal defect or patent foramen ovale as noted on 2-D or Doppler imaging. AORTIC VALVE The aortic valve is mildly calcified. The aortic valve is trileaflet. Doppler and Color Flow revealed no significant aortic regurgitation. There is no significant aortic valvular stenosis. MITRAL VALVE The mitral valve is normal in structure and function. There is no mitral valve stenosis. Doppler and Color Flow revealed trace mitral valve regurgitation. TRICUSPID VALVE The tricuspid valve is normal in structure and function. Doppler and Color Flow revealed trivial tric uspid regurgitation. The PA pressure was estimated at 18 mmHg. There is no tricuspid valve stenosis. PULMONIC VALVE The pulmonic valve is not well visualized. Doppler and Color Flow revealed trace pulmonic valvular re gurgitation. There is no pulmonic valvular stenosis. GREAT VESSELS The aortic root is normal in size. The ascending aorta is normal in size. Normal pulmonary venous ann w (Doppler). The IVC is normal in size and collapses >50% with inspiration. PERICARDIAL EFFUSION There is no evidence of significant pericardial effusion. Critical Notification Critical Value: No <Conclusion> The left ventricle is normal size. Left ventricle systolic function is normal. The Ejection Fraction is 60-65%. There is no significant aortic valvular stenosis. Doppler and Color Flow revealed no significant aortic regurgitation. Doppler and Color Flow revealed trace mitral valve regurgitation. Doppler and Color Flow revealed trivial tricuspid regurgitation. The PA pressure was estimated at 18 mmHg.
[2016-12-31] MEDS: ENOXAPARIN 40 MG/0.4 ML SYRINGE. SQ SCH (16:00)
[2016-12-31] MEDS: oxyCODONE IR 5 MG TABLET PO PRN (16:04)
--- NOTE | 2017-01-01 00:21 | CONS ---
DATE OF CONSULTATION: LOCATION: He is in room 652. ATTENDING PHYSICIAN: Dr. Francisco Bryant. The patient was seen at the request of Dr. Bryant for evaluation about his left knee pain. HISTORY OF PRESENT ILLNESS: This is a 56-year-old right-handed male with painful left knee. The patient was diagnosed as having hypothyroidism last week was on levothyroxine. He noted some fatigue on 12/29/2016, unable to function, so he left work early and went home. His left knee pain was 10/10. He took oxycodone. When he woke up on 12/30/2016, he had some shortness of breath and anxious and his brought him through the Emergency Room. He was noted with hyperglycemia, creatinine of 1.4, which has been normal for him. CTA of the chest was negative for any pulmonary embolism. The patient admits left knee pain, sometime goes down to his left ankle. He admits some time when he moves the knee, it bothers him. The patient with known hypertension, hyperlipidemia, chronic obstructive pulmonary disease, gastroesophageal reflux disease, iron deficiency anemia, history of gastritis and duodenitis, cirrhosis of liver, anxiety, chronic alcoholic use lasting about 9 months ago, depression, panic episodes, chronic intermittent low back pain, gouty arthritis, chronic renal insufficiency, chronic kidney disease stage 2, benign prostatic hypertrophy, type 2 diabetes with neuropathy, status post left medial meniscus tear and repair done in May of this year. 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 The patient lives with his family, had stairs for him to manage. PHYSICAL EXAMINATION: Today revealed a middle-aged male. He is alert, oriented to time, place, person and circumstance and follows commands appropriately, moves all 4 extremities voluntarily where he had 4+/5 grade muscle strength and deep tendon reflexes are decreased overall with absent ankle jerks. He had equal perception of touch and pinprick sensation bilaterally. He had a crepitus on range of motion of his knee joints without any obvious knee joint effusion. The patient had pain free range of motion of his lumbar spine and both hips. Straight leg raising test is negative bilaterally. He is independent with bed mobility and transfers. I have not tested his ambulation skills at this time. His skin is intact at this time. 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 The patient also with known diabetes mellitus with peripheral neuropathy, hyperlipidemia, hypertension, chronic kidney disease stage 2, hypothyroidism, anxiety, depression, chronic ethanol abuse in remission, gastroesophageal reflux disease, iron deficiency anemia, history of gouty arthritis, chronic lower back pain, an episode of shortness of breath, negative for pulmonary embolism, mild obesity. RECOMMENDATIONS: At his request, I have injected his left knee under aseptic skin technique after skin preparation using alcohol swab with Marcaine and Depo-Medrol solution and he tolerated the procedure satisfactorily without any side effects. I shall advice him to use a hinged knee brace and also reviewed with him isometric strengthening exercise to his left quadriceps. I advised him to use a cane if the pain makes him limp. Home, when medically stable. Dr. Bryant, I appreciate asking me to participate in the care of this interesting patient. I will be glad to follow him with you on an as needed basis. ELMA FRANCIS MD DR: MELISA/glenroy JOB#: [id number] / [id number]
== END 2016-12-31 18:14 | disposition home or self-care (01) ==
LOC: ER 08:11 → 6 SOUTH 10:29
PROVIDERS: ADMIT Internal Medicine; ATTEND Internal Medicine
DX: J44.9 Chronic obstructive pulmonary disease, unspecified (principal); G89.18 Other acute postprocedural pain; M25.562 Pain in left knee; I12.9 Hypertensive chronic kidney disease with stage 1 through stage 4 chronic kidney disease, or unspecified chronic kidney disease; N18.2 Chronic kidney disease, stage 2 (mild); E11.22 Type 2 diabetes mellitus with diabetic chronic kidney disease; E11.65 Type 2 diabetes mellitus with hyperglycemia; E11.40 Type 2 diabetes mellitus with diabetic neuropathy, unspecified; E78.5 Hyperlipidemia, unspecified; E03.9 Hypothyroidism, unspecified; F10.21 Alcohol dependence, in remission; M10.9 Gout, unspecified; K21.9 Gastro-esophageal reflux disease without esophagitis; F41.9 Anxiety disorder, unspecified; J98.11 Atelectasis; K74.60 Unspecified cirrhosis of liver; G89.29 Other chronic pain; I25.10 Atherosclerotic heart disease of native coronary artery without angina pectoris; F17.210 Nicotine dependence, cigarettes, uncomplicated; Z79.4 Long term (current) use of insulin; Z23 Encounter for immunization
CPT/HCPCS: 36415; 71010; 71275; 73565; 73721; 80053; 81001; 82248; 82553; 82962; 83880; 84443; 84484; 85025; 85610; 90471; 90686; 93005; 93306; 93971; 94250; 94640; 96372; G0378; G0379; J1650; J1815; J7512; J7620; Q9967

== ENCOUNTER 2017-03-13 15:26 | Emergency (ER) | payer BC ==
[~2017-03-13] VITALS: Ht 193 cm; Wt 121.1 kg
[~2017-03-13 15:26] MED LIST changes: +LEVO50TA PO; +NICO1PAT21 TP; +OXYC-328 PO
[2017-03-13] MEDS ORDERED: diazePAM 5 MG TABLET PO ONE (15:45)
[2017-03-13] MEDS ORDERED: KETOROLAC 60 MG/2 ML INJ. IM ONE (15:45)
[2017-03-13] MEDS ORDERED: MORPHINE SULFATE 10 MG/ML VIAL. IM ONE (15:45)
[2017-03-13 15:48] VITALS: BP 144/87
[2017-03-13] MEDS ORDERED: CYCL10TA2 PO (16:08)
[2017-03-13] MEDS ORDERED: DICL50TA4 PO (16:08)
[2017-03-13] MEDS ORDERED: HYDR-971 PO (16:08)
--- NOTE | 2017-03-13 16:08 | PHYS DOC ---
Past Medical History Past Medical History: Anxiety, Bronchitis, Diabetes-Type II, High Cholesterol, Hypertension, Hypothyroid Past Surgical History: Other Additional Past Surgical Histo: L KNEE Alcohol Use: Occasionally Drug Use: None Adult General Chief Complaint Chief Complaint: LOWER BACK PAIN OR INJURY HPI HPI Patient is a 57 year old male with a history of diabetes, hypertension, high cholesterol, who presents today with moderate mid and low back pain that began today when he sat down. Patient denies any known injury. He states pain radiates to bilateral lower extremities with no numbness or tingling to bilateral lower extremities. Denies any loss of bowel bladder function. Review of Systems Review of Systems Constitutional: Denies fever or chills [] Eyes: Denies change in visual acuity, redness, or eye pain [] HENT: Denies nasal congestion or sore throat [] Respiratory: Denies cough or shortness of breath [] Cardiovascular: No additional information not addressed in HPI [] GI: Denies abdominal pain, nausea, vomiting, bloody stools or diarrhea [] : Denies dysuria or hematuria [] Musculoskeletal: Mid and low back pain radiating to bilateral lower extremities. Integument: Denies rash or skin lesions [] Neurologic: Denies headache, focal weakness or sensory changes [] All other systems were reviewed and found to be within normal limits, except as documented in this note. Current Medications Current Medications Current Medications Medications (Trade) Dose Ordered Sig/[facility] Start Time Stop Time Status Last Admin Dose Admin Diazepam (Valium) 5 mg 1X ONCE 03/13/17 15:45 03/13/17 15:50 DC Ketorolac Tromethamine (Toradol Im) 60 mg 1X ONCE 03/13/17 15:45 03/13/17 15:50 DC Morphine Sulfate 5 mg 1X ONCE 03/13/17 15:45 03/13/17 15:50 DC Allergies Allergies Allergies Coded Allergies Type Severity Reaction Last Updated Verified lisinopril Allergy Severe ANGIOEDEMA 06/09/16 Yes Physical Exam Physical Exam Constitutional: Well developed, well nourished, no acute distress, non-toxic appearance. [] HENT: Normocephalic, atraumatic, bilateral external ears normal, oropharynx moist, no oral exudates, nose normal. [] Eyes: PERRLA, EOMI, conjunctiva normal, no discharge. [] Neck: Normal range of motion, no tenderness, supple, no stridor. [] Cardiovascular:Heart rate regular rhythm, no murmur [] Lungs & Thorax: Bilateral breath sounds clear to auscultation [] Abdomen: Bowel sounds normal, soft, no tenderness, no masses, no pulsatile masses. [] Skin: Warm, dry, no erythema, no rash. [] Back: Diffuse paraspinal muscle tenderness to bilateral thoracic and lumbar spine, no midline tenderness, no CVA tenderness. [] Extremities: No tenderness, no cyanosis, no clubbing, ROM intact, no edema. [] Neurologic: Alert and oriented X 3, normal motor function, normal sensory function, no focal deficits noted. [] Psychologic: Affect normal, judgement normal, mood normal. [] Current Patient Data Vital Signs Vital Signs Date Time Temp Pulse Resp B/P (MAP) Pulse Ox O2 Delivery O2 Flow Rate FiO2 03/13/17 15:48 98.6 82 20 99 Room Air 98.6 EKG EKG [] Radiology/Procedures Radiology/Procedures [] Course & Med Decision Making Course & Med Decision Making Pertinent Labs and Imaging studies reviewed. (See chart for details) Patient is in the ED with mid and low back pain that began today no known injury. Pain appears musculoskeletal. Will be discharged with 6 tablest of [place] , Diclofenac and valium and f/u with PCP on Thursday Reann Disclaimer Renan Disclaimer This electronic medical record was generated, in whole or in part, using a voice recognition dictation system. Departure Departure Impression: Primary Impression: Back pain Additional Impression: Acute thoracic back pain Disposition: HOME, SELF-CARE Condition: STABLE Referrals: SINDY ROGER MD (PCP) follow up with your doctor next weekPatient is Patient Instructions: Back Exercises, [id number], Back Pain, Adult Additional Instructions: You were seen for mid and low back pain. Take the prescribed medicines as ordered. Do not lift anything greater than a gallon of neck for one week. Follow -up with your own doctor on Thursday next week. Come back to the ED symptoms worsen. Scripts Hydrocodone/Apap 5-325 (NORCO 5-325 TABLET) 1 Each Tablet 1 TAB PO Q6-8HRS Y for PAIN, #6 TAB Prov: MUTUNGA,NAOMI ELECTRONIC DEVELOPMENT TECHNICIAN 03/13/17 Diclofenac Sodium (DICLOFENAC SODIUM) 50 Mg Tablet. 1 TAB PO BID, #30 TAB 0 Refills Prov: NAOMI ABRAMS COURTNEY 03/13/17 Cyclobenzaprine Hcl (CYCLOBENZAPRINE HCL) 10 Mg Tablet 1 TAB PO TID, #30 TAB Prov: NAOMI ABRAMS COURTNEY 03/13/17 Problem Qualifiers Primary Impression: Back pain Back pain location: low back pain Chronicity: acute Back pain laterality: bilateral Sciatica presence: with sciatica Sciatica laterality: bilateral sciatica Qualified Codes: M54.42 - Lumbago with sciatica, left side; M54.41 - Lumbago with sciatica, right side Additional Impression: Acute thoracic back pain Back pain laterality: bilateral Qualified Codes: M54.6 - Pain in thoracic spine ROCÍONAOMI MUÑOZ COURTNEY Mar 13, 2017 16:08
== END 2017-03-13 16:32 | disposition home or self-care (01) ==
LOC: ER 15:26
DX: M54.41 Lumbago with sciatica, right side (principal); M54.6 Pain in thoracic spine; E03.9 Hypothyroidism, unspecified; E11.9 Type 2 diabetes mellitus without complications; E78.00 Pure hypercholesterolemia, unspecified; F41.9 Anxiety disorder, unspecified; I10 Essential (primary) hypertension; Z88.8 Allergy status to other drugs, medicaments and biological substances
CPT/HCPCS: 96372; 99284; J1885; J2270

== ENCOUNTER → 2017-07-06 | Outpatient (CLI) | payer BC | END | disposition home or self-care (01) | LOC: RT 18:21 | DX: G47.33 Obstructive sleep apnea (adult) (pediatric) (principal) | CPT/HCPCS: 95811 ==

== ENCOUNTER → 2017-07-09 | Outpatient (CLI) | payer BC | END | disposition home or self-care (01) | LOC: PMGWOUND 11:54 | DX: S31.119A Laceration without foreign body of abdominal wall, unspecified quadrant without penetration into peritoneal cavity, initial encounter (principal); F32.9 Major depressive disorder, single episode, unspecified; I25.10 Atherosclerotic heart disease of native coronary artery without angina pectoris; E03.9 Hypothyroidism, unspecified; E78.5 Hyperlipidemia, unspecified; E11.9 Type 2 diabetes mellitus without complications; I10 Essential (primary) hypertension; K21.9 Gastro-esophageal reflux disease without esophagitis; G47.33 Obstructive sleep apnea (adult) (pediatric); M19.90 Unspecified osteoarthritis, unspecified site; E66.9 Obesity, unspecified; Z68.33 Body mass index [BMI] 33.0-33.9, adult; Z87.891 Personal history of nicotine dependence; W19.XXXA Unspecified fall, initial encounter; Y93.9 Activity, unspecified; Y92.9 Unspecified place or not applicable; Y99.8 Other external cause status | CPT/HCPCS: 99214 ==

== ENCOUNTER → 2017-08-11 | Outpatient (CLI) | payer BC | END | disposition home or self-care (01) | LOC: US 06:29 | DX: K76.0 Fatty (change of) liver, not elsewhere classified (principal); R94.5 Abnormal results of liver function studies | CPT/HCPCS: 76705 ==

== ENCOUNTER → 2017-08-19 | Outpatient (CLI) | payer BC ==
[~2017-08-19] MED LIST changes: -ACET500T33 PO; -AMLO5TAB2 PO; -ASPI-482 PO; -BUPR300T4 PO; -CLON1TAB PO; -CYCL10TA2 PO; -GABA-586 PO; +GELATIN SPONGE SIZE 12-7MM SPONGE.; -GUAI600T47 PO; -HYDR12.58 PO; -INSU100I11 SQ; -INSU100I13 SQ; -INSU100I17 SQ; -INSU100V SQ; -LEVO500T59 PO; -LEVO50TA PO; +LIDOCAINE WITH 8.4% SOD BICARB 3 ML DISP.SYRIN.; +MIDAZOLAM HCL/PF 2 MG/2 ML VIAL.; -MULT-245 PO; -NICO1PAT21 TP; -OXYC-328 PO; -PRED-220 PO; -PROAIR HFA8.5 GM IH; -QUET100T4 PO; -TRAZ150T49 PO; -VALS320T2 PO; -ZOLP10TA4 PO; +fentaNYL PF VIAL 100 MCG/2 ML VIAL
[2017-08-19 08:25] LABS: ADD MAN DIFF? NO
[2017-08-19 08:26] LABS: BASO # 0.1 x10^3/uL (0.0-0.2); BASO % 1 % (0-3); EOS # 0.2 x10^3/uL (0.0-0.7); EOS % 3 % (0-3); HEMATOCRIT 35.8 % (39.0-53.0); HEMOGLOBIN 12.5 g/dL (13.0-17.5); LYMPH # 2.2 x10^3/uL (1.0-4.8); LYMPH % 34 % (24-48); MEAN CORPUSCULAR HEMOGLOBIN 32 pg (25-35); MEAN CORPUSCULAR HGB CONC 35 g/dL (31-37); MEAN CORPUSCULAR VOLUME 93 fL (79-100); MONO # 0.5 x10^3/uL (0.0-1.1); MONO % 8 % (0-9); NEUT # 3.4 x10^3uL (1.8-7.7); NEUT % 54 % (31-73); PLATELET COUNT 179 x10^3/uL (140-400); RED BLOOD COUNT 3.86 x10^6/uL (4.30-5.70); RED CELL DISTRIBUTION WIDTH 15.4 % (11.5-14.5); WHITE BLOOD COUNT 6.4 x10^3/uL (4.0-11.0)
[2017-08-19 08:37] LABS: INR 0.9 (0.8-1.1); PARTIAL THROMBOPLASTIN TIME 27 SEC (24-38); PROTHROMBIN TIME PATIENT 11.9 SEC (11.7-14.0)
[2017-08-19] MEDS: MIDAZOLAM HCL/PF 2 MG/2 ML VIAL. IV (10:18)
[2017-08-19] MEDS: fentaNYL PF VIAL 100 MCG/2 ML VIAL IV (10:18)
[2017-08-19] MEDS: LIDOCAINE WITH 8.4% SOD BICARB 3 ML DISP.SYRIN. IJ (10:20)
[2017-08-19] MEDS: GELATIN SPONGE SIZE 12-7MM SPONGE. TP (10:26)
== END | disposition home or self-care (01) ==
LOC: INTRAD 08:00
DX: K76.0 Fatty (change of) liver, not elsewhere classified (principal); E83.118 Other hemochromatosis; E78.00 Pure hypercholesterolemia, unspecified; I10 Essential (primary) hypertension; J44.9 Chronic obstructive pulmonary disease, unspecified; Z87.01 Personal history of pneumonia (recurrent); G47.33 Obstructive sleep apnea (adult) (pediatric); E66.9 Obesity, unspecified; Z68.32 Body mass index [BMI] 32.0-32.9, adult; N40.0 Benign prostatic hyperplasia without lower urinary tract symptoms; M10.9 Gout, unspecified; E11.9 Type 2 diabetes mellitus without complications; E03.9 Hypothyroidism, unspecified; F41.0 Panic disorder [episodic paroxysmal anxiety]; F32.9 Major depressive disorder, single episode, unspecified; Z87.891 Personal history of nicotine dependence; D64.9 Anemia, unspecified; Z82.3 Family history of stroke; Z82.49 Family history of ischemic heart disease and other diseases of the circulatory system; Z88.8 Allergy status to other drugs, medicaments and biological substances; Z79.84 Long term (current) use of oral hypoglycemic drugs
CPT/HCPCS: 36415; 47000; 76942; 85025; 85610; 85730; 88307; 88313; 99152; J2250; J3010

== ENCOUNTER → 2017-08-24 | Outpatient (CLI) | payer BC | END | disposition home or self-care (01) | LOC: PMGWOUND 12:59 | DX: S31.119D Laceration without foreign body of abdominal wall, unspecified quadrant without penetration into peritoneal cavity, subsequent encounter (principal); I25.10 Atherosclerotic heart disease of native coronary artery without angina pectoris; K21.9 Gastro-esophageal reflux disease without esophagitis; E78.5 Hyperlipidemia, unspecified; E03.9 Hypothyroidism, unspecified; F32.9 Major depressive disorder, single episode, unspecified; E66.9 Obesity, unspecified; G47.33 Obstructive sleep apnea (adult) (pediatric); M19.90 Unspecified osteoarthritis, unspecified site; F41.9 Anxiety disorder, unspecified; J44.9 Chronic obstructive pulmonary disease, unspecified; E11.22 Type 2 diabetes mellitus with diabetic chronic kidney disease; I13.0 Hypertensive heart and chronic kidney disease with heart failure and stage 1 through stage 4 chronic kidney disease, or unspecified chronic kidney disease; N18.2 Chronic kidney disease, stage 2 (mild); I50.9 Heart failure, unspecified; G89.29 Other chronic pain; E78.00 Pure hypercholesterolemia, unspecified; E11.42 Type 2 diabetes mellitus with diabetic polyneuropathy; E11.65 Type 2 diabetes mellitus with hyperglycemia; F10.20 Alcohol dependence, uncomplicated; Z87.891 Personal history of nicotine dependence; Z68.33 Body mass index [BMI] 33.0-33.9, adult; Y90.9 Presence of alcohol in blood, level not specified; X58.XXXD Exposure to other specified factors, subsequent encounter | CPT/HCPCS: 99214 ==